=== PATIENT | female | born 1950 | race American Indian/Alaskan Native ===

== ENCOUNTER 2018-06-12 11:37 | Emergency (ER) | payer MEDICARE ==
[2018-06-12] MEDS ORDERED: D50W (25GM) Syringe IV ONE ×2 (12:03→12:37)
--- NOTE | 2018-06-12 12:08 | Emergency Department Report ---
ED General Adult HPI - General Stated complaint: HIGH BLOOD SUGAR Time Seen by Provider: 06/12/18 11:54 - History of Present Illness Initial comments: Patient is 67 years old female history of diabetes and hypertension and bipolar disorder. Patient brought to the ER for evaluation of high blood sugar, patient stated that she was at her PCP office, they found that her blood sugar is 500 .She call EMS, EMS when they got there they checked her blood sugar and it was 81. Patient denying any symptoms. When she arrived to the ER, patient blood sugar was 39. EMS stated that they only gave 250 mL of normal saline no insulin was given. Patient denied any chest pain, abdominal pain, nausea or vomiting. - Related Data Home Medications Medication Instructions Recorded Confirmed Last Taken AtorvaSTATin [Lipitor] 20 mg PO QHS 06/12/18 06/12/18 Unknown Metformin HCl [Glucophage] 1,000 mg PO DAILY 06/12/18 06/12/18 Unknown Sertraline [Zoloft] 200 mg PO DAILY 06/12/18 06/12/18 Unknown amLODIPine [Norvasc] 10 mg PO DAILY 06/12/18 06/12/18 Unknown Allergies Allergy/AdvReac Type Severity Reaction Status Date / Time LANDON Inhibitors AdvReac Rash Verified 06/12/18 12:13 Iodine and Iodide Containing AdvReac Anaphylaxis Verified 06/12/18 12:14 Produc ED Review of Systems ROS: Stated complaint: HIGH BLOOD SUGAR Other details as noted in HPI Comment: All other systems reviewed and negative Constitutional: denies: chills, fever Respiratory: denies: cough Cardiovascular: denies: chest pain, palpitations, dyspnea on exertion, orthopnea Gastrointestinal: denies: abdominal pain, nausea, vomiting, diarrhea, constipation, hematemesis, melena, hematochezia Genitourinary: denies: urgency, dysuria, frequency, hematuria, discharge Musculoskeletal: denies: back pain Neurological: denies: headache, weakness, numbness, paresthesias, confusion, abnormal gait ED Past Medical Hx - Medications Home Medications: Home Medications Medication Instructions Recorded Confirmed Last Taken Type AtorvaSTATin [Lipitor] 20 mg PO QHS 18 06/12/18 Unknown History Metformin HCl [Glucophage] 1,000 mg PO DAILY 06/12/18 06/12/18 Unknown History Sertraline [Zoloft] 200 mg PO DAILY 06/12/18 06/12/18 Unknown History amLODIPine [Norvasc] 10 mg PO DAILY 06/12/18 06/12/18 Unknown History ED Physical Exam - General General appearance: alert, in no apparent distress - Head Head exam: Present: atraumatic, normocephalic, normal inspection - Eye Eye exam: Present: normal appearance, PERRL - ENT ENT exam: Present: normal exam, normal orophraynx, mucous membranes moist - Neck Neck exam: Present: normal inspection, full ROM. Absent: tenderness, meningismus, lymphadenopathy, thyromegaly - Respiratory Respiratory exam: Present: normal lung sounds bilaterally. Absent: respiratory distress, wheezes, rales, rhonchi, stridor, chest wall tenderness, accessory muscle use, decreased breath sounds, prolonged expiratory - Cardiovascular Cardiovascular Exam: Present: regular rate, normal rhythm, normal heart sounds - GI/Abdominal GI/Abdominal exam: Present: soft, normal bowel sounds. Absent: distended, tenderness, guarding, rebound, rigid, organomegaly, mass, bruit, pulsatile mass , hernia - Extremities Exam Extremities exam: Present: normal inspection, full ROM, normal capillary refill - Back Exam Back exam: Present: normal inspection, full ROM. Absent: tenderness, CVA tenderness (R), CVA tenderness (L), muscle spasm, paraspinal tenderness, vertebral tenderness - Neurological Exam Neurological exam: Present: alert, oriented X3, CN II-XII intact, normal gait, reflexes normal - Skin Skin exam: Present: warm, intact, normal color ED Course Vital Signs 06/12/18 06/12/18 06/12/18 11:50 12:00 12:04 Temperature 98.3 F Pulse Rate 95 H 105 H Respiratory 22 18 Rate Blood Pressure 115/64 105/61 Blood Pressure 105/61 [Right] O2 Sat by Pulse 98 97 98 Oximetry 06/12/18 06/12/18 06/12/18 12:16 12:30 12:46 Temperature Pulse Rate 95 H 94 H 101 H Respiratory 20 16 22 Rate Blood Pressure 115/64 115/64 115/64 Blood Pressure [Right] O2 Sat by Pulse 97 97 96 Oximetry 06/12/18 06/12/18 06/12/18 13:00 13:16 13:30 Temperature Pulse Rate 104 H 100 H 100 H Respiratory 23 23 18 Rate Blood Pressure 115/64 115/64 124/91 Blood Pressure [Right] O2 Sat by Pulse 96 96 96 Oximetry 06/12/18 06/12/18 06/12/18 13:48 14:00 14:16 Temperature Pulse Rate Respiratory Rate Blood Pressure 124/91 124/91 124/91 Blood Pressure [Right] O2 Sat by Pulse 98 96 97 Oximetry 06/12/18 06/12/18 06/12/18 14:30 14:46 15:00 Temperature Pulse Rate Respiratory Rate Blood Pressure 124/91 124/91 124/91 Blood Pressure [Right] O2 Sat by Pulse 97 98 99 Oximetry 06/12/18 06/12/18 06/12/18 15:16 16:48 17:00 Temperature Pulse Rate Respiratory 21 Rate Blood Pressure 140/76 140/76 140/76 Blood Pressure [Right] O2 Sat by Pulse 100 92 96 Oximetry 06/12/18 06/12/18 06/12/18 17:16 17:30 17:46 Temperature Pulse Rate Respiratory 19 22 26 H Rate Blood Pressure 140/76 109/85 109/85 Blood Pressure [Right] O2 Sat by Pulse 100 99 98 Oximetry 06/12/18 06/12/18 06/12/18 18:00 18:20 18:46 Temperature Pulse Rate 88 Respiratory 24 16 Rate Blood Pressure 139/84 139/84 Blood Pressure [Right] O2 Sat by Pulse 98 97 99 Oximetry - Reevaluation(s) Reevaluation #1: 06/12/18 18:53 Patient stated that she is feeling much better. I discussed with the patient the option of being admitted to be observed patient refused the admission and she said she just wanted go home and see significant call her son to come and pick. Patient currently denying any headache, dizziness, chest pain, shortness of breath, abdominal pain, weakness numbness or tingling sensation. ED Medical Decision Making - Lab Data Result diagrams: 06/12/18 18:41 06/12/18 12:11 - Radiology Data Radiology results: report reviewed CT brain is negative for acute finding. Chest x-ray is negative for acute finding. Critical care attestation.: If time is entered above; I have spent that time in minutes in the direct care of this critically ill patient, excluding procedure time. ED Disposition Clinical Impression: Hypoglycemic reaction, Generalized weakness Disposition: DC-01 TO HOME OR SELFCARE Is pt being admited?: No Condition: Stable Instructions: Diabetic Hypoglycemia (ED), Weakness (ED) Referrals: PRIMARY CARE, [Primary Care Provider] - 3-5 Days
[2018-06-12 12:36] LABS: Hematocrit 33.7 % (30.3-42.9); Mean Corpuscular HGB Conc 33 % (30-34); Mean Corpuscular Hemoglobin 28 pg (28-32); Mean Corpuscular Volume 87 fl (79-97); Platelet Count 248 K/mm3 (140-440); Red Blood Count 3.89 M/mm3 (3.65-5.03); Red Cell Distribution Width 14.6 % (13.2-15.2)
[2018-06-12 12:53] LABS: Alanine Aminotransferase 15 units/L (7-56); Albumin 3.9 g/dL (3.9-5); BUN/Creatinine Ratio 29; Blood Urea Nitrogen 29 mg/dL (7-17); Calcium 9.5 mg/dL (8.4-10.2); Hemolysis Index 24
[2018-06-12] MEDS: KCL 10MEQ/100ML 10 MEQ/100 ML BAG IV SCH ×2 (14:19→16:55)
[2018-06-12] MEDS ORDERED: NACL 0.9% 1000 ML 1,000 ML ONE (14:46)
[2018-06-12 14:59] LABS: Bacteria,Urine 1+ /HPF (Negative); Bilirubin,Urine NEG (Negative); Blood,Urine NEG (Negative); Color,Urine Yellow (Yellow); Protein,Urine <15 mg/dL mg/dL (Negative); Urobilinogen,Urine < 2.0 mg/dL (<2.0); WBC,Urine < 1.0 /HPF (0.0-6.0)
[2018-06-12 15:01] LABS: RBC,Urine < 1.0 /HPF (0.0-6.0)
--- NOTE | 2018-06-12 15:10 | XRay Report ---
AP CHEST: HISTORY: weakness AP view of the chest demonstrates a normal mediastinal and cardiac contour with clear lungs and normal bony and soft tissue structures. IMPRESSION: Unremarkable AP chest.
[2018-06-12 15:22] LABS: Total Cells Counted 100
[2018-06-12 15:23] LABS: Platelet Estimate Consistent w Auto
[2018-06-12] MEDS ORDERED: K-DUR PO ONE (15:37)
[2018-06-12] MEDS ORDERED: HABITROL TD ONE (16:52)
--- NOTE | 2018-06-12 18:35 | Cat Scan Report ---
FINAL REPORT PROCEDURE: CT head without contrast. TECHNIQUE: Computerized tomography of the head was performed without contrast material. HISTORY: Dizziness. COMPARISON: No prior studies are available for comparison. FINDINGS: There is mild cerebral atrophy. There are old lacunar infarcts in the basal ganglia bilaterally. There are no mass lesions. There is no intracranial hemorrhage. The calvarium appears intact. The mastoid air cells and paranasal sinuses are clear as far as visualized. IMPRESSION: Old lacunar infarcts in the basal ganglia. Otherwise normal study of the brain for age.
[2018-06-12 19:02] LABS: Basophils # (Auto) 0.1 K/mm3 (0.0-0.1); Basophils % (Auto) 0.4 % (0.0-1.8); Eosinophils # (Auto) 0.2 K/mm3 (0.0-0.4); Eosinophils % (Auto) 1.3 % (0.0-4.3); Hematocrit 36.3 % (30.3-42.9); Hemoglobin 11.9 gm/dl (10.1-14.3); Lymphocytes # (Auto) 2.2 K/mm3 (1.2-5.4); Lymphocytes % (Auto) 13.8 % (13.4-35.0); Mean Corpuscular HGB Conc 33 % (30-34); Mean Corpuscular Hemoglobin 28 pg (28-32); Mean Corpuscular Volume 86 fl (79-97); Monocytes # (Auto) 1.2 K/mm3 (0.0-0.8); Monocytes % (Auto) 7.6 % (0.0-7.3); Platelet Count 221 K/mm3 (140-440); Red Blood Count 4.24 M/mm3 (3.65-5.03); Red Cell Distribution Width 14.3 % (13.2-15.2)
[2018-06-12 19:05] VITALS: BP 139/84
== END 2018-06-12 19:28 | disposition home or self-care (01) ==
LOC: ED 11:37
DX: E11.649 Type 2 diabetes mellitus with hypoglycemia without coma (principal); I10 Essential (primary) hypertension; Z88.8 Allergy status to other drugs, medicaments and biological substances
CPT/HCPCS: 36415; 70450; 71045; 80053; 81001; 82962; 84484; 85007; 85025; 96374; 99285; J3480; J7030

== ENCOUNTER 2020-05-04 22:02 | Observation (INO) | payer MEDICARE ==
--- NOTE | 2020-05-04 22:49 | Emergency Department Report ---
ED Neuro Deficit HPI - General Chief Complaint: Hyperglycemia Stated Complaint: DIABETIC, SUGAR HIGH Source: patient Mode of arrival: Wheelchair Limitations: No Limitations - History of Present Illness Initial Comments: [facility] Date of Service: 05/04/2020 22:29:59 Impression: Left sided weakness Comments/Sign-Out: Acute onset left arm weakness, resolving now and otherwise non focal. Unclear etiology but possible TIA as symptoms have pretty much resolved. Metrics: Last Known Well: 05/04/2020 21:30:00 [facility] Notification Time: 05/04/2020 22:29:27 Arrival Time: 05/04/2020 22:02:00 Stamp Time: 05/04/2020 22:29:59 Time First Login Attempt: 05/04/2020 22:34:04 Video Start Time: 05/04/2020 22:34:04 Symptoms: Left arm weakness NIHSS Start Assessment Time: 05/04/2020 22:39:58 Patient is not a candidate for tPA. Patient was not deemed candidate for tPA thrombolytics because of Resolved symptoms (no residual disabling symptoms). Video End Time: 05/04/2020 22:45:45 CT head showed no acute hemorrhage or acute core infarct. Clinical Presentation is not Suggestive of Large Vessel Occlusive Disease ED Physician notified of diagnostic impression and management plan on 05/04/2020 22:45:44 Our recommendations are outlined below. Recommendations: Activate Stroke Protocol Admission/Order Set Stroke/Telemetry Floor Neuro Checks Bedside Swallow Eval DVT Prophylaxis IV Fluids, Normal Saline Head of Bed 30 Degrees Euglycemia and Avoid Hyperthermia (PRN Acetaminophen) Initiate Aspirin 81 MG Daily Initiate Plavix 75 MG Daily MRI brain, MRA head and neck, FLP, A1c, permissive htn, echo Routine Consultation with Inhouse Neurology for Follow up Care Sign Out: Discussed with Emergency Department Provider History of Present Illness: Patient is a 69 year old Female. Patient was brought by EMS for symptoms of Left arm weakness Hx of stroke, [place], DM2 Sudden onset left arm weakness. No face or leg involvement. She has no numbness or tingling that is new. No AC Takes asa daily. Examination: BP(114/91), Blood Glucose(226) 1A: Level of Consciousness - Alert; keenly responsive + 0 1B: Ask Month and Age - Both Questions Right + 0 1C: Blink Eyes & Squeeze Hands - Performs Both Tasks + 0 2: Test Horizontal Extraocular Movements - Normal + 0 3: Test Visual Johnson - No Visual Loss + 0 4: Test Facial Palsy (Use Grimace if Obtunded) - Normal symmetry + 0 5A: Test Left Arm Motor Drift - No Drift for 10 Seconds + 0 5B: Test Right Arm Motor Drift - No Drift for 10 Seconds + 0 6A: Test Left Leg Motor Drift - No Drift for 5 Seconds + 0 6B: Test Right Leg Motor Drift - No Drift for 5 Seconds + 0 7: Test Limb Ataxia (FNF/Heel-Buchanan) - No Ataxia + 0 8: Test Sensation - Normal; No sensory loss + 0 9: Test Language/Aphasia - Normal; No aphasia + 0 10: Test Dysarthria - Normal + 0 11: Test Extinction/Inattention - No abnormality + 0 NIHSS Score: 0 Due to the immediate potential for life-threatening deterioration due to underl elvis acute neurologic illness, I spent 35 minutes providing critical care. This time includes time for face to face visit via telemedicine, review of medical records, imaging studies and discussion of findings with providers, the patient and/or family. Dr César Jonas [facility] Case [id number] - Related Data Home Medications: Home Medications Medication Instructions Recorded Confirmed Last Taken AtorvaSTATin [Lipitor] 20 mg PO QHS 06/12/18 06/12/18 Unknown Metformin HCl [Glucophage] 1,000 mg PO DAILY 06/12/18 06/12/18 Unknown Sertraline [Zoloft] 200 mg PO DAILY 06/12/18 06/12/18 Unknown amLODIPine [Norvasc] 10 mg PO DAILY 06/12/18 06/12/18 Unknown Allergies/Adverse Reactions: Allergies Allergy/AdvReac Type Severity Reaction Status Date / Time LANDON Inhibitors AdvReac Rash Verified 06/12/18 12:13 Iodine and Iodide Containing AdvReac Anaphylaxis Verified 06/12/18 12:14 Produc ED Review of Systems ROS: Stated complaint: DIABETIC, SUGAR HIGH Other details as noted in HPI ED Past Medical Hx - Past Medical History Previous Medical History?: Yes Hx Hypertension: Yes Hx CVA: Yes (x2 old left side weakness.) Hx Heart Attack/AMI: No Hx Congestive Heart Failure: No Hx Diabetes: Yes Hx Pulmonary Embolism: No Hx GERD: No Hx Liver Disease: No Hx Renal Disease: No Hx Sickle Cell Disease: No Hx Arthritis: No Hx Headaches / Migraines: No Hx Seizures: No Hx Kidney Stones: No Hx Psychiatric Treatment: No Hx Asthma: No Hx COPD: No Hx Tuberculosis: No Hx Dementia: No Hx HIV: No - Surgical History Past Surgical History?: Yes Hx Coronary Stent: No Hx Open Heart Surgery: No Hx Pacemaker: No Hx Internal Defibrillator: No Hx Cholecystectomy: No Hx Appendectomy: No Hx Breast Surgery: No Additional Surgical History: sinus - Social History Smoking Status: Current Every Day Smoker Substance Use Type: Alcohol - Medications Home Medications: Home Medications Medication Instructions Recorded Confirmed Last Taken Type AtorvaSTATin [Lipitor] 20 mg PO QHS 06/12/18 06/12/18 Unknown History Metformin HCl [Glucophage] 1,000 mg PO DAILY 06/12/18 06/12/18 Unknown History Sertraline [Zoloft] 200 mg PO DAILY 06/12/18 06/12/18 Unknown History amLODIPine [Norvasc] 10 mg PO DAILY 06/12/18 06/12/18 Unknown History ED Neuro Physical Exam - General Limitations: No Limitations Suspected Stroke: Yes (probable TIA) - NIHSS Assessment Interval: Baseline 1a. Level of Consciousness: alert/keenly responsive 1b. LOC Questions: answers both correctly 1c. LOC Commands: performs tasks correctly 2. Best Gaze: normal 3. Visual: no visual loss 4. Facial Palsy: normal symmetrical movement 5b. Motor Arm Right: no drift 5a. Motor Arm Left: no drift 6a. Motor Leg Left: no drift 6b. Motor Leg Right: no drift 7. Limb Ataxia: absent 8. Sensory: normal 9. Best Language: no aphasia 10. Dysarthria: normal 11. Extinction/Inattention: no abnormality Total Score: 0 Stroke Severity: No Stroke Symptoms ED Course Vital Signs 05/04/20 22:07 Temperature 98.0 F Pulse Rate 118 H Respiratory 18 Rate Blood Pressure 114/91 O2 Sat by Pulse 99 Oximetry - Lab Data Lab Results 05/04/20 Range/Units 22:36 POC Glucose 72 (70-105) Critical care attestation.: If time is entered above; I have spent that time in minutes in the direct care of this critically ill patient, excluding procedure time. ED Disposition Clinical Impression: TIA (transient ischemic attack) Disposition: OP ADMIT IP TO THIS HOSP Is pt being admited?: Yes Condition: Stable
--- NOTE | 2020-05-04 22:55 | Cat Scan Report ---
CT HEAD WITHOUT CONTRAST INDICATION / CLINICAL INFORMATION: CODE STROKE PROTOCOL!!! Pt complains of LEFT sided weakness x 1 hour, otherwise asymptomatic.. TECHNIQUE: All CT scans at this location are performed using CT dose reduction for ALARA by means of automated e xposure control. COMPARISON: None available. FINDINGS: HEMORRHAGE: None. EXTRA-AXIAL SPACES: Normal in size and morphology for the patient's age. VENTRICULAR SYSTEM: Mildly prominent from central cerebral atrophy, unchanged CEREBRAL PARENCHYMA: Focal encephalomalacia from old right posterior parietal CVA, unchanged axial im ages 18 through 20. Old bilateral lacunar infarcts both caudate nuclei No significant abnormality. No acute territorial infarct. MIDLINE SHIFT OR HERNIATION: None. CEREBELLUM / BRAINSTEM: Old small right superior cerebellar CVA, unchanged. ORBITS: Normal as visualized. SOFT TISSUES of HEAD: No significant abnormality. CALVARIUM: No significant abnormality. PARANASAL SINUSES / MASTOID AIR CELLS: Normal as visualized. ADDITIONAL FINDINGS: Vascular calcifications both cavernous carotid and vertebral arteries. IMPRESSION: 1. No large acute territorial infarction or intracranial bleed. 2. Old right posterior parietal and right superior cerebellar CVAs. 3. Old bilateral lacunar infarcts COMMUNICATION: Code stroke results Time of Communication: 9:50 PM Central standard time 05/04/2020 Licensed Practitioner Receiving Report: Dr. Caballero Signer Name: Juan Nolasco MD Signed: 05/04/2020 10:51 PM Workstation Name: [id number]
[2020-05-04 23:01] LABS: Basophils # (Auto) 0.1 K/mm3 (0.0-0.1); Basophils % (Auto) 0.7 % (0.0-1.8); Eosinophils # (Auto) 0.1 K/mm3 (0.0-0.4); Hematocrit 44.6 % (30.3-42.9); Hemoglobin 14.8 gm/dl (10.1-14.3); Lymphocytes # (Auto) 1.7 K/mm3 (1.2-5.4); Lymphocytes % (Auto) 13.7 % (13.4-35.0); Mean Corpuscular HGB Conc 33 % (30-34); Mean Corpuscular Volume 91 fl (79-97); Monocytes # (Auto) 1.2 K/mm3 (0.0-0.8); Monocytes % (Auto) 9.6 % (0.0-7.3); Platelet Count 304 K/mm3 (140-440); Red Blood Count 4.92 M/mm3 (3.65-5.03); Red Cell Distribution Width 14.9 % (13.2-15.2)
[2020-05-04 23:11] LABS: Partial Thromboplastin Time 24.3 Sec. (24.2-36.6)
[2020-05-04 23:15] LABS: INR 0.91 (0.87-1.13)
--- NOTE | 2020-05-04 23:16 | Emergency Department Report ---
ED Neuro Deficit HPI - General Chief Complaint: Hyperglycemia Stated Complaint: DIABETIC, SUGAR HIGH Time Seen by Provider: 05/04/20 23:05 Source: patient Mode of arrival: Wheelchair Limitations: No Limitations - History of Present Illness Initial Comments: 69-year-old female with a past medical history of diabetes currently on insulin, previous CVA x2 with left-sided weakness, and hypertension presents to the hospital complains of uncontrolled glucose. Patient states her glucose today was in the 200s therefore she took her 10 units of insulin. She was concerned because her glucose came down to the 70s and up after eating a half a honey bun remained in the 70s. Patient was concerned that her glucose was going to drop too low and therefore came to the ED. In route to the hospital around 10 PM patient started to experience left shoulder and arm burning sensation. There is no complaint of weakness to the arm. Patient has a history of diabetic neuropathy with symptoms in her feet and left fingers. Patient states she has not felt this burning pain in her left arm like this before. Symptoms have been constant since onset. No other neuro complaints at this time. Patient is prescribed Novolin N 26 units twice daily but patient states that her sugar drops too low on this regiment. Therefore, patient gives herself 10 to 15 units of insulin twice daily only if her sugars greater 150s. Patient denies infectious symptoms, cough, fever, or dysuria - Related Data Home Medications: Home Medications Medication Instructions Recorded Confirmed Last Taken AtorvaSTATin [Lipitor] 20 mg PO QHS 06/12/18 06/12/18 Unknown Metformin HCl [Glucophage] 1,000 mg PO DAILY 06/12/18 06/12/18 Unknown Sertraline [Zoloft] 200 mg PO DAILY 06/12/18 06/12/18 Unknown amLODIPine [Norvasc] 10 mg PO DAILY 06/12/18 06/12/18 Unknown Allergies/Adverse Reactions: Allergies Allergy/AdvReac Type Severity Reaction Status Date / Time LANDON Inhibitors AdvReac Rash Verified 06/12/18 12:13 Iodine and Iodide Containing AdvReac Anaphylaxis Verified 06/12/18 12:14 Produc ED Review of Systems ROS: Stated complaint: DIABETIC, SUGAR HIGH Other details as noted in HPI Comment: All other systems reviewed and negative ED Past Medical Hx - Past Medical History Previous Medical History?: Yes Hx Hypertension: Yes Hx CVA: Yes (x2 old left side weakness.) Hx Heart Attack/AMI: No Hx Congestive Heart Failure: No Hx Diabetes: Yes Hx Pulmonary Embolism: No Hx GERD: No Hx Liver Disease: No Hx Renal Disease: No Hx Sickle Cell Disease: No Hx Arthritis: No Hx Headaches / Migraines: No Hx Seizures: No Hx Kidney Stones: No Hx Psychiatric Treatment: No Hx Asthma: No Hx COPD: No Hx Tuberculosis: No Hx Dementia: No Hx HIV: No - Surgical History Past Surgical History?: Yes Hx Coronary Stent: No Hx Open Heart Surgery: No Hx Pacemaker: No Hx Internal Defibrillator: No Hx Cholecystectomy: No Hx Appendectomy: No Hx Breast Surgery: No Additional Surgical History: sinus - Social History Smoking Status: Current Every Day Smoker Substance Use Type: Alcohol - Medications Home Medications: Home Medications Medication Instructions Recorded Confirmed Last Taken Type AtorvaSTATin [Lipitor] 20 mg PO QHS 06/12/18 06/12/18 Unknown History Metformin HCl [Glucophage] 1,000 mg PO DAILY 06/12/18 06/12/18 Unknown History Sertraline [Zoloft] 200 mg PO DAILY 06/12/18 06/12/18 Unknown History amLODIPine [Norvasc] 10 mg PO DAILY 06/12/18 06/12/18 Unknown History ED Neuro Physical Exam - General Limitations: No Limitations Suspected Stroke: No - NIHSS Assessment Interval: Baseline 1a. Level of Consciousness: alert/keenly responsive 1b. LOC Questions: answers both correctly 1c. LOC Commands: performs tasks correctly 2. Best Gaze: normal 3. Visual: no visual loss 4. Facial Palsy: normal symmetrical movement 5b. Motor Arm Right: no drift 5a. Motor Arm Left: no drift 6a. Motor Leg Left: no drift 6b. Motor Leg Right: no drift 7. Limb Ataxia: absent 8. Sensory: normal 9. Best Language: no aphasia 10. Dysarthria: normal 11. Extinction/Inattention: no abnormality Total Score: 0 Stroke Severity: No Stroke Symptoms ED Course Vital Signs 05/04/20 05/04/20 22:07 23:09 Temperature 98.0 F 98.6 F Pulse Rate 118 H 98 H Respiratory 18 18 Rate Blood Pressure 114/91 Blood Pressure 214/91 [Left] O2 Sat by Pulse 99 96 Oximetry - Lab Data Result diagrams: 05/04/20 22:49 05/04/20 22:49 Lab Results 05/04/20 05/04/20 05/04/20 Range/Units 22:36 22:49 22:49 WBC 12.5 H (4.5-11.0) K/mm3 RBC 4.92 (3.65-5.03) M/mm3 Hgb 14.8 H (10.1-14.3) gm/dl Hct 44.6 H (30.3-42.9) % MCV 91 (79-97) fl MCH 30 (28-32) pg MCHC 33 (30-34) % RDW 14.9 (13.2-15.2) % Plt Count 304 (140-440) K/mm3 Lymph % (Auto) 13.7 (13.4-35.0) % [place] % (Auto) 9.6 H (0.0-7.3) % Eos % (Auto) 1.0 (0.0-4.3) % Baso % (Auto) 0.7 (0.0-1.8) % Lymph # 1.7 (1.2-5.4) K/mm3 [place] # 1.2 H (0.0-0.8) K/mm3 Eos # 0.1 (0.0-0.4) K/mm3 Baso # 0.1 (0.0-0.1) K/mm3 Seg Neutrophils % 75.0 H (40.0-70.0) % Seg Neutrophils # 9.3 H (1.8-7.7) K/mm3 PT 12.1 L (12.2-14.9) Sec. INR 0.91 (0.87-1.13) APTT 24.3 (24.2-36.6) Sec. VBG pH (7.320-7.420) Sodium (137-145) mmol/L Potassium (3.6-5.0) mmol/L Chloride (98-107) mmol/L Carbon Dioxide (22-30) mmol/L Anion Gap mmol/L BUN (7-17) mg/dL Creatinine (0.7-1.2) mg/dL Estimated GFR ml/min BUN/Creatinine Ratio % Glucose (65-100) mg/dL POC Glucose 72 (70-105) Calcium (8.4-10.2) mg/dL Troponin T (0.00-0.029) ng/mL Urine Color (Yellow) Urine Turbidity (Clear) Urine pH (5.0-7.0) Ur Specific [place] (1.003-1.030) Urine Protein (Negative) mg/dL Urine Glucose (UA) (Negative) mg/dL Urine Ketones (Negative) mg/dL Urine Blood (Negative) Urine Nitrite (Negative) Urine Bilirubin (Negative) Urine Urobilinogen (<2.0) mg/dL Ur Leukocyte Esterase (Negative) Urine WBC (Auto) (0.0-6.0) /HPF Urine RBC (Auto) (0.0-6.0) /HPF Urine Bacteria (Auto) (Negative) /HPF 05/04/20 05/04/20 05/04/20 Range/Units 22:49 22:49 23:18 WBC (4.5-11.0) K/mm3 RBC (3.65-5.03) M/mm3 Hgb (10.1-14.3) gm/dl Hct (30.3-42.9) % MCV (79-97) fl MCH (28-32) pg MCHC (30-34) % RDW (13.2-15.2) % Plt Count (140-440) K/mm3 Lymph % (Auto) (13.4-35.0) % [place] % (Auto) (0.0-7.3) % Eos % (Auto) (0.0-4.3) % Baso % (Auto) (0.0-1.8) % Lymph # (1.2-5.4) K/mm3 [place] # (0.0-0.8) K/mm3 Eos # (0.0-0.4) K/mm3 Baso # (0.0-0.1) K/mm3 Seg Neutrophils % (40.0-70.0) % Seg Neutrophils # (1.8-7.7) K/mm3 PT (12.2-14.9) Sec. INR (0.87-1.13) APTT (24.2-36.6) Sec. VBG pH 7.369 (7.320-7.420) Sodium 142 (137-145) mmol/L Potassium 4.6 (3.6-5.0) mmol/L Chloride 104.0 (98-107) mmol/L Carbon Dioxide 25 (22-30) mmol/L Anion Gap 18 mmol/L BUN 15 (7-17) mg/dL Creatinine 1.0 (0.7-1.2) mg/dL Estimated GFR > 60 ml/min BUN/Creatinine Ratio 15 % Glucose 89 (65-100) mg/dL POC Glucose (70-105) Calcium 10.3 H (8.4-10.2) mg/dL Troponin T < 0.010 (0.00-0.029) ng/mL Urine Color Straw (Yellow) Urine Turbidity Clear (Clear) Urine pH 7.0 (5.0-7.0) Ur Specific [place] 1.004 (1.003-1.030) Urine Protein 30 mg/dl (Negative) mg/dL Urine Glucose (UA) Neg (Negative) mg/dL Urine Ketones Neg (Negative) mg/dL Urine Blood Neg (Negative) Urine Nitrite Neg (Negative) Urine Bilirubin Neg (Negative) Urine Urobilinogen < 2.0 (<2.0) mg/dL Ur Leukocyte Esterase Neg (Negative) Urine WBC (Auto) < 1.0 (0.0-6.0) /HPF Urine RBC (Auto) 1.0 (0.0-6.0) /HPF Urine Bacteria (Auto) 1+ (Negative) /HPF - EKG Data -: EKG Interpreted by Me (pvc's) EKG shows normal: sinus rhythm, ST-T waves (no stemi) Rate: tachycardia (101) - Radiology Data Radiology results: report reviewed CT HEAD WITHOUT CONTRAST INDICATION / CLINICAL INFORMATION: CODE STROKE PROTOCOL!!! Pt complains of LEFT sided weakness x 1 hour, otherwise asymptomatic.. TECHNIQUE: All CT scans at this location are performed using CT dose reduction for ALARA by means of automated exposure control. COMPARISON: None available. FINDINGS: HEMORRHAGE: None. EXTRA-AXIAL SPACES: Normal in size and morphology for the patient's age. VENTRICULAR SYSTEM: Mildly prominent from central cerebral atrophy, unchanged CEREBRAL PARENCHYMA: Focal encephalomalacia from old right posterior parietal CVA, unchanged axial images 18 through 20. Old bilateral lacunar infarcts both caudate nuclei No significant abnormality. No acute territorial infarct. MIDLINE SHIFT OR HERNIATION: None. CEREBELLUM / BRAINSTEM: Old small right superior cerebellar CVA, unchanged. ORBITS: Normal as visualized. SOFT TISSUES of HEAD: No significant abnormality. CALVARIUM: No significant abnormality. PARANASAL SINUSES / MASTOID AIR CELLS: Normal as visualized. ADDITIONAL FINDINGS: Vascular calcifications both cavernous carotid and vertebral arteries. IMPRESSION: 1. No large acute territorial infarction or intracranial bleed. 2. Old right posterior parietal and right superior cere bellar CVAs. 3. Old bilateral lacunar infarcts - Medical Decision Making pt came to ed due to concerns her glucose would drop and developed left arm burning pain in route to the hospital. Patient does have history of diabetic neuropathy. No weakness noted on exam. Patient evaluated by tele-neurologist who recommends TIA work-up. Also recommends aspirin 81 mg and Plavix 75 mg which have been ordered Critical Care Time: No Critical care attestation.: If time is entered above; I have spent that time in minutes in the direct care of this critically ill patient, excluding procedure time. ED Disposition Clinical Impression: TIA (transient ischemic attack), Diabetes, Diabetic neuropathy Disposition: OP ADMIT IP TO THIS HOSP Is pt being admited?: Yes Condition: Stable Time of Disposition: 00:55 (gbenle/hosp)
[2020-05-04 23:21] LABS: BUN/Creatinine Ratio 15; Blood Urea Nitrogen 15 mg/dL (7-17); Calcium 10.3 mg/dL (8.4-10.2); Hemolysis Index 6
[2020-05-04 23:43] LABS: Bacteria,Urine 1+ /HPF (Negative); Bilirubin,Urine NEG (Negative); Blood,Urine NEG (Negative); Color,Urine Straw (Yellow); Urobilinogen,Urine < 2.0 mg/dL (<2.0); WBC,Urine < 1.0 /HPF (0.0-6.0)
[2020-05-05] MEDS ORDERED: ASPIRIN 81 MG TAB CHEW PO ONE (00:34)
[2020-05-05] MEDS ORDERED: CLOPIDOGREL 75 MG TAB PO ONE (00:34)
[2020-05-05] MEDS ORDERED: ACETAMINOPHEN 325 MG TAB PO PRN ×2 (01:09)
[2020-05-05] MEDS ORDERED: MAGNESIUM HYDROXIDE (MOM) ORAL LIQD UDC PO PRN ×2 (01:09)
[2020-05-05] MEDS ORDERED: DEXTROSE 50% IN WATER (25GM) 50 ML SYRINGE IV PRN (01:09)
[2020-05-05] MEDS ORDERED: PROMETHAZINE 25 MG RECT SUPP PR PRN (01:09)
[2020-05-05] MEDS ORDERED: METOCLOPRAMIDE 10 MG TAB PO PRN (01:09)
[2020-05-05] MEDS ORDERED: ONDANSETRON 4 MG/2 ML INJ IV PRN ×2 (01:09)
--- NOTE | 2020-05-05 01:27 | History and Physical Report ---
History of Present Illness Date of examination: 05/05/20 Date of admission: 05/05/20 00:55 Chief complaint: Uncontrolled blood sugar Tingling sensation in the left upper extremity History of present illness: 69-year-old female with known history of CVA with left-sided weakness, diabetes mellitus and hypertension presenting to the emergency room today complaining of uncontrolled blood sugar.. She has been having elevated blood glucose at home as she had taking about 10 units of insulin. She admits she was concerned that her blood sugar might be low and therefore she decided to report to the emergency room. She later on complained of left shoulder and left upper extremity burning sensation. She denies any chest pain or shortness of breath, no nausea vomiting, no fever or chills, no headache or dizziness. Patient denies having this type of burning sensation in her left upper extremity and over the shoulder in the past. She was evaluated by teleneurologist and recommendation is to have patient worked up for possible TIA Work-up so far including CT scan of the head has been unremarkable. Past History Past Medical History: diabetes, hypertension, hyperlipidemia, stroke Past Surgical History: No surgical history Social history: smoking (Current daily smoker), alcohol abuse (Drinks alcohol occasionally) Family history: no significant family history Medications and Allergies Allergies Allergy/AdvReac Type Severity Reaction Status Date / Time LANDON Inhibitors AdvReac Rash Verified 06/12/18 12:13 Iodine and Iodide Containing AdvReac Anaphylaxis Verified 06/12/18 12:14 Produc Home Medications Medication Instructions Recorded Confirmed Last Taken Type AtorvaSTATin [Lipitor] 20 mg PO QHS 06/12/18 06/12/18 Unknown History Metformin HCl [Glucophage] 1,000 mg PO DAILY 06/12/18 06/12/18 Unknown History Sertraline [Zoloft] 200 mg PO DAILY 06/12/18 06/12/18 Unknown History amLODIPine [Norvasc] 10 mg PO DAILY 06/12/18 06/12/18 Unknown History Active Meds: Active Medications Acetaminophen (Tylenol) 650 mg PO Q4H PRN PRN Reason: Pain MILD(1-3)/Fever >100.5/CRUZ Acetaminophen (Tylenol) 650 mg PO Q4H PRN PRN Reason: Pain, Mild (1-3) Aspirin (Aspirin) 325 mg PO QDAY KIT Bisacodyl (Dulcolax) 10 mg [place] QDAY PRN PRN Reason: Constipation Dextrose (D50w (25gm) Syringe) 50 ml IV Q30MIN PRN; Protocol PRN Reason: Hypoglycemia Insulin Human Lispro (Humalog) 0 unit SUB-Q ACHS KIT; Protocol Magnesium Hydroxide (Milk Of Magnesia) 30 ml PO Q4H PRN PRN Reason: Constipation Magnesium Hydroxide (Milk Of Magnesia) 30 ml PO Q4H PRN PRN Reason: Constipation Metoclopramide HCl (Reglan) 10 mg PO Q6H PRN PRN Reason: Nausea And Vomiting Ondansetron HCl (Zofran) 4 mg IV Q8H PRN PRN Reason: Nausea And Vomiting Ondansetron HCl (Zofran) 4 mg IV Q8H PRN PRN Reason: Nausea And Vomiting Promethazine HCl (Phenergan) 25 mg [place] Q6H PRN PRN Reason: Nausea And Vomiting Sodium Chloride (Sodium Chloride Flush Syringe 10 Ml) 10 ml IV BID KIT Sodium Chloride (Sodium Chloride Flush Syringe 10 Ml) 10 ml IV PRN PRN PRN Reason: LINE FLUSH Sodium Chloride (Sodium Chloride Flush Syringe 10 Ml) 10 ml INJ PRN PRN PRN Reason: LINE FLUSH Review of Systems Constitutional: no fever, no chills Ears, nose, mouth and throat: no nasal congestion, no sore throat Cardiovascular: no chest pain, no palpitations, no syncope Respiratory: no cough, no shortness of breath Gastrointestinal: no abdominal pain, no nausea, no vomiting, no diarrhea Genitourinary Female: no flank pain, no dysuria, no hematuria Musculoskeletal: no neck pain, no low back pain Integumentary: no rash, no pruritis Neurological: no headaches, no confusion Psychiatric: no anxiety, no depression Exam - Constitutional Vitals: Temp Pulse Resp BP Pulse Ox 98.6 F 98 H 18 214/91 96 05/04/20 23:09 05/04/20 23:09 05/04/20 23:09 05/04/20 23:09 05/04/20 23:09 General appearance: Present: no acute distress, well-nourished - EENT Eyes: Present: PERRL, EOM intact ENT: hearing intact, clear oral mucosa, dentition normal - Neck Neck: Present: supple, normal ROM - Respiratory Respiratory effort: normal Respiratory: bilateral: CTA - Cardiovascular Rhythm: regular Heart Sounds: Present: S1 & S2. Absent: gallop, systolic murmur, diastolic murmur, rub - Extremities Extremities: no ischemia, pulses intact, pulses symmetrical, No edema, Full ROM Peripheral Pulses: within normal limits - Abdominal General gastrointestinal: Present: soft, non-tender, non-distended, normal bowel sounds - Integumentary Integumentary: Present: clear, warm, dry. Absent: jaundice, rash - Musculoskeletal Musculoskeletal: strength equal bilaterally - Psychiatric Psychiatric: appropriate mood/affect, intact judgment & insight, memory intact, cooperative - Neurologic Neurologic: CNII-XII intact, no focal deficits, moves all extremities HEART Score - HEART Score Troponin: Troponin T < 0.010 ng/mL (0.00-0.029) 05/04/20 22:49 Results - Labs CBC & Chem 7: 05/04/20 22:49 05/04/20 22:49 Labs: Abnormal lab results 05/04/20 05/04/20 05/04/20 Range/Units 22:49 22:49 22:49 WBC 12.5 H (4.5-11.0) K/mm3 Hgb 14.8 H (10.1-14.3) gm/dl Hct 44.6 H (30.3-42.9) % [place] % (Auto) 9.6 H (0.0-7.3) % [place] # 1.2 H (0.0-0.8) K/mm3 Seg Neutrophils % 75.0 H (40.0-70.0) % Seg Neutrophils # 9.3 H (1.8-7.7) K/mm3 PT 12.1 L (12.2-14.9) Sec. Calcium 10.3 H (8.4-10.2) mg/dL Assessment and Plan - Patient Problems (1) TIA (transient ischemic attack) Current Visit: Yes Status: Acute Plan to address problem: Patient will be scheduled for carotid Doppler and MRI of the brain. Continue on daily aspirin. We will request evaluation by neurology. (2) Diabetes Current Visit: Yes Status: Acute Plan to address problem: We will monitor Accu-Cheks closely and resume routine home medications. (3) Hypertension Current Visit: Yes Status: Acute Plan to address problem: We will resume routine home medications and monitor vital signs closely (4) DVT prophylaxis Current Visit: Yes Status: Acute Plan to address problem: Patient placed on subcutaneous heparin. (5) Full code status Current Visit: Yes Status: Acute
[2020-05-05] MEDS: HEPARIN 5,000 UNIT/1 ML VIAL SUB-Q SCH ×2 (06:36→13:25)
[2020-05-05] MEDS: INSULIN LISPRO 100 UNIT/ML SUB-Q SCH ×3 (08:27→16:37)
[2020-05-05] MEDS ORDERED: ASPIRIN 325 MG TAB PO SCH (10:00)
--- NOTE | 2020-05-05 10:32 | Magnetic Resonance Report ---
MRI BRAIN WITHOUT CONTRAST INDICATION / CLINICAL INFORMATION: Left-sided weakness. TECHNIQUE: Multiplanar, multisequence MR images of the brain were obtained. COMPARISON: Head CT on 05/04/2020. FINDINGS: BRAIN / INTRACRANIAL CONTENTS: No acute ischemia, acute hemorrhage, mass effect, midline shift, or hy drocephalus. Stable chronic small infarcts in the right posterior occipital convexity and right supe rior cerebellum. Stable remote bilateral lacunar infarcts in the basal ganglia. Stable mild age comme nsurate global brain parenchymal volume loss. CRANIOCERVICAL JUNCTION: No significant abnormality. VASCULAR FLOW-VOIDS: No significant abnormality. ORBITS: No significant abnormality of visualized orbits. SINUSES / MASTOIDS: No significant abnormality of visualized sinuses and mastoid air cells. ADDITIONAL FINDINGS: None. IMPRESSION: 1. No acute infarct or other acute abnormality. 2. Stable multifocal chronic infarcts as detailed above. Signer Name: Jet Ozuna MD Signed: 05/05/2020 10:28 AM Workstation Name: [id number]
--- NOTE | 2020-05-05 11:45 | Consultation ---
History of Present Illness Consult date: 05/05/20 Reason for Consult: Left arm numbness Chief complaint: Left arm numbness History of present illness: Patient is a 69 y/o woman w/ a h/o CVA w/ no residual symptoms, HTN, DM, HLD, CAD, bipolar disease. She presented yesterday after she became concerned regarding her blood glucose, as it had decreased to 70 at home, and was not increasing after glucose intake. She was brought to [facility] for further evaluation, and en route, developed Lt. shoulder pain in left deltoid region. She denies any significant weakness or numbness of LUE. Symptoms had begun to improve when she was evaluated by teleneurologist in ER, and NIHSS was zero at that time. She states that she takes ASA 81mg daily, and has been compliant with it. Today, left shoulder pain has improved significantly, as it was 7/10 intensity yesterday, and is almost 0-1/10 today. She notes that it is worse in certain positions, such as raising the arm up, and improves when relaxing the arm. Past History Past Medical History: diabetes, hypertension, hyperlipidemia, stroke, other (h/o CVA w/ no residual symptoms, HTN, DM, HLD, CAD, bipolar disorder) Past Surgical History: No surgical history Social history: smoking (Current daily smoker), alcohol abuse (Drinks alcohol occasionally) Family history: no significant family history Medications and Allergies Allergies Allergy/AdvReac Type Severity Reaction Status Date / Time LANDON Inhibitors AdvReac Rash Verified 06/12/18 12:13 Iodine and Iodide Containing AdvReac Anaphylaxis Verified 06/12/18 12:14 Produc Home Medications Medication Instructions Recorded Confirmed Last Taken Type AtorvaSTATin [Lipitor] 20 mg PO QHS 06/12/18 05/05/20 Unknown History amLODIPine [Norvasc] 10 mg PO DAILY 06/12/18 05/05/20 Unknown History Insulin NPH, Human [NovoLIN N] 20 unit SQ BID 05/05/20 05/05/20 Unknown History Active Meds: Active Medications Acetaminophen (Tylenol) 650 mg PO Q4H PRN PRN Reason: Pain, Mild (1-3) Aspirin (Aspirin) 325 mg PO QDAY KIT Last Admin: 05/05/20 10:50 Dose: 325 mg Documented by: Bisacodyl (Dulcolax) 10 mg TX QDAY PRN PRN Reason: Constipation Dextrose (D50w (25gm) Syringe) 0 ml IV Q30MIN PRN; Protocol PRN Reason: Hypoglycemia Last Admin: 05/05/20 07:50 Dose: 20 ml Documented by: Heparin Sodium (Porcine) (Heparin) 5,000 unit SUB-Q Q8HR KIT Last Admin: 05/05/20 06:36 Dose: 5,000 unit Documented by: Insulin Human Lispro (Humalog) 0 unit SUB-Q ACHS [facility]; Protocol Last Admin: 05/05/20 11:13 Dose: Not Given Documented by: Magnesium Hydroxide (Milk Of Magnesia) 30 ml PO Q4H PRN PRN Reason: Constipation Metoclopramide HCl (Reglan) 10 mg PO Q6H PRN PRN Reason: Nausea And Vomiting Ondansetron HCl (Zofran) 4 mg IV Q8H PRN PRN Reason: Nausea And Vomiting Promethazine HCl (Phenergan) 25 mg TX Q6H PRN PRN Reason: Nausea And Vomiting Sodium Chloride (Sodium Chloride Flush Syringe 10 Ml) 10 ml IV BID [facility] Last Admin: 05/05/20 11:23 Dose: 10 ml Documented by: Sodium Chloride (Sodium Chloride Flush Syringe 10 Ml) 10 ml IV PRN PRN PRN Reason: LINE FLUSH Review of Systems All systems: negative Musculoskeletal: other (left shoulder pain) Physical Examination - Vital Signs Vital Signs: Vital Signs Temp Pulse Resp BP Pulse Ox 98.0 F 118 H 18 114/91 99 05/04/20 22:07 05/04/20 22:07 05/04/20 22:07 05/04/20 22:07 05/04/20 22:07 - Physical Exam Narrative exam: Patient is alert, awake, oriented x4, follows complex commands. No dysarthria or aphasia noted. EOMI, VFF, tongue midline, bilaterally intact to LT, no facial weakness noted. 5/5 strength in all extremities. Bilaterally intact light touch. Bilaterally intact to FTN and HTS. Patient noted to have pain in left shoulder upon abduction and posterior rotation, which improves upon adduction. - Constitutional General appearance: comfortable - Level of Consciousness 1a. Level of Consciousness: alert/keenly responsive - LOC Questions 1b. LOC Questions: answers both correctly - LOC Command 1c. LOC Commands: performs tasks correctly - Best Gaze 2. Best Gaze: normal - Visual 3. Visual: no visual loss - Facial Palsy 4. Facial Palsy: normal symmetrical movement - Motor Arm 5a. Motor Arm Left: no drift 5b. Motor Arm Right: no drift - Motor Leg 6a. Motor Leg Left: no drift 6b. Motor Leg Right: no drift - Limb Ataxia 7. Limb Ataxia: absent - Sensory 8. Sensory: normal - Best Language 9. Best Language: no aphasia - Dysarthria 10. Dysarthria: normal - Extinction and Inattention 11. Extinction/Inattention: no abnormality - Scoring Total Score: 0 Stroke Severity: No Stroke Symptoms Results - Laboratory Findings CBC and BMP: 05/04/20 22:49 05/04/20 22:49 Abnormal Lab Findings: Abnormal Labs 05/04/20 05/04/20 05/04/20 22:49 22:49 22:49 WBC 12.5 H Hgb 14.8 H Hct 44.6 H Prowers % (Auto) 9.6 H [place] # 1.2 H Seg Neutrophils % 75.0 H Seg Neutrophils # 9.3 H PT 12.1 L POC Glucose Calcium 10.3 H 05/05/20 08:38 WBC Hgb Hct Prowers % (Auto) Prowers # Seg Neutrophils % Seg Neutrophils # PT POC Glucose 153 H Calcium Assessment and Plan Patient is a 69 y/o woman w/ a h/o CVA w/ no residual symptoms, HTN, DM, HLD, CAD, who p/w LUE numbness. According to the patient's clinical findings, it is likely that she likely has localized shoulder joint disease. Patient did not have any complaints of LUE weakness or numbness when detailed history was taken today. In addition, left shoulder pain was elicited with abduction of LUE and external rotation. Plan: 1. Left shoulder pain: - More likely localized shoulder joint disease. Less likely due to TIA, as patient only c/o pain, and did not complain of any weakness or numbness - MRI brain: no acute abnormalities. - CT head: no acute abnormalities - Echo: pending - Cont. ASA - Cont. statin. LDL goal <70 - Telemetry monitoring while in house - PT/OT/ST - DVT Ppx: Recommend lovenox - Recommend further workup of Left shoulder joint pain per primary team. 2. Hypertension: - Recommend BP goal of normotension, as no infarct noted on MRI. - Will sign off, as neurologic investigations are complete, and treatment plan is in place. Please call with any questions. Thank you for allowing me to take part in the care of this patient. Fabien Acosta MD Neurology This clinical encounter was provided via live telemedicine platform. Consultative service was provided for neurology to support local providers. The Acute Teleneurology team should be contacted with any neurologic worsening or clinical changes, new test results, or new patient history that is reported to or discovered by the local team following completion of the teleneurology consultation, specifically that which has the potential to impact the consultat ping recommendations. Patient/Family was informed the Neurology Consult would happen via TeleHealth consult by way of interactive audio and video telecommunications and consented to receiving care in this manner. Due to the potential for life-threatening deterioration due to underlying neurologic illness, and limited resources available for patient care, telemedicine was used as means of patient care. Telemedicine consultation is limited in the extent of physical exam that can be virtually provided. Time spent evaluating patient includes time for face to face visit via telemedicine, review of medical records, imaging studies and discussion of findings with providers, the patient and/or family.
[2020-05-05] MEDS ORDERED: amLODIPine 10 MG TAB PO SCH (12:00)
--- NOTE | 2020-05-05 15:06 | Discharge Summary ---
Providers - Providers Date of Admission: 05/05/20 00:55 Date of discharge: 05/05/20 Attending physician: ANN-MARIE PIEDRA 05/05/20 01:10 Consult to Dietitian/Nutrition [CONS] Routine Physician Instructions: Reason For Exam: Reason for Consult: Diet education Occupational Therapy Evaluate and Treat [CONS] Routine Comment: Reason For Exam: Neuro deficits Physical Therapy Evaluation and Treat [CONS] Routine Comment: Reason For Exam: Neuro deficits 05/05/20 01:17 Consult to Physician [CONS] Routine Comment: Consulting Provider: BOUCHRA STUART Physician Instructions: Reason For Exam: TIA Primary care physician: NSH TEACHER Hospitalization Condition: Stable Pertinent studies: Head CT, carotid Doppler, brain MRI, shoulder x-ray, 2D echocardiogram Hospital course: Patient is a 69 y/o woman w/ a h/o CVA w/ no residual symptoms, HTN, DM, HLD, CAD, who p/w LUE numbness. According to the patient's clinical findings, it is likely that she likely has localized shoulder joint disease. Patient did not have any complaints of LUE weakness or numbness when detailed history was taken today. In addition, left shoulder pain was elicited with abduction of LUE and external rotation. MRI brain was negative for any stroke. Left shoulder x-ray showed no acute fracture or any acute pathology. Neurology was evaluated and recommended outpatient follow-up. Patient was then discharged home in stable condition. Discharge diagnosis: Left shoulder pain: Ruled out TIA or acute CVA - More likely localized shoulder joint disease. Less likely due to TIA, as patient only c/o pain, and did not complain of any weakness or numbness - MRI brain: no acute abnormalities. - CT head: no acute abnormalities - Cont. ASA and statin - Cont. statin. LDL goal <70 -Left shoulder x-ray showed no acute fracture -Recommended further follow-up as outpatient Hypertension: -Continue home meds. Diabetes mellitus type 2, resume home meds, consistent carb diet Hyperlipidemia , continue statin History of CVA without any residual symptom, continue aspirin and statin Physical exam: GENERAL: well-developed and well-nourished elderly female lying on bed appeared to be in no discomfort. HEENT: Normocephalic. Atraumatic. No conjunctival congestion or icterus. Patient has moist mucous membranes. NECK: Supple. Trachea midline. CHEST/LUNGS: Clear to auscultated bilaterally, breathing nonlabored. No wheezes crackles or rhonchi. HEART/CARDIOVASCULAR: Regular in rate and rhythm. S1 and S2 positive. ABDOMEN: Abdomen is soft, nontender. Patient has normal bowel sounds. SKIN: There is no rash. Warm and dry. NEURO: No focal motor deficit. Follows command. MUSCULOSKELETAL: left shoulder pain was elicited with abduction of LUE and external rotation EXTRIMITY: No edema, no cyanosis or clubbing. PSYCH: Cooperative. Disposition: DC-01 TO HOME OR SELFCARE Time spent for discharge: 34 minutes Core Measure Documentation - Palliative Care Palliative Care/ Comfort Measures: Not Applicable - Core Measures Any of the following diagnoses?: none Exam - Constitutional Vitals: Temp Pulse Resp BP Pulse Ox 98.3 F 87 20 154/72 94 05/05/20 11:07 05/05/20 12:23 05/05/20 11:07 05/05/20 12:23 05/05/20 11:07 Plan Activity: advance as tolerated Weight Bearing Status: Non-Weight Bearing (on affected hand) Diet: diabetic Follow up with: PRIMARY CARE, [Primary Care Provider] - 7 Days Prescriptions: Aspirin EC [Halfprin EC] 81 mg PO QDAY #30 tablet.
--- NOTE | 2020-05-05 16:33 | XRay Report ---
LEFT SHOULDER 3 VIEWS INDICATION / CLINICAL INFORMATION: pain COMPARISON: None available. FINDINGS: BONES / JOINT(S): No acute fracture or subluxation. No significant arthritis. SOFT TISSUES: No significant abnormality. ADDITIONAL FINDINGS: None. Signer Name: Philip Rios MD Signed: 05/05/2020 4:28 PM Workstation Name: [id number]
[2020-05-05 16:38] VITALS: BP 151/71
[2020-05-05] MEDS ORDERED: INSULIN NPH, HUMAN 100 UNIT/1 ML SUB-Q SCH (17:00)
--- NOTE | 2020-05-05 17:26 | Vascular Lab Report ---
"DUPLEX DOPPLER ULTRASOUND CAROTID, BILATERAL INDICATION: Left-sided weakness. FINDINGS: RIGHT CAROTID: Mild plaque Right CCA velocity: 89 cm/sec. Right ICA peak systolic velocity: 77 cm/sec. ICA/CCA PSV Ratio: 0.9. Right Vertebral Artery: Antegrade flow. LEFT CAROTID: Mild plaque Left CCA velocity: 67 cm/sec. Left ICA peak systolic velocity: 103 cm/sec. ICA/CCA PSV Ratio: 1.5. Left Vertebral Artery: Antegrade flow. IMPRESSION: 1. Right Internal Carotid Artery: Less than 50% diameter stenosis. 2. Left Internal Carotid Artery: Less than 50% diameter stenosis. Velocity criteria are extrapolated from diameter data as defined by the Society of Radiologists in Ul trasound Consensus Conference, Radiology 2003; 229;340-346. Degree of Stenosis (%) || ICA PSV (cm/sec) || Plaque estimate (%) || ICA/CCA PSV Ratio Normal <125 None <2.0 <50 <125 <50 <2.0 50-69 125-230 50 2.0-4.0 70 but less than 100 >230 50 >4.0 Near occlusion High, low, or none visible variable Total occlusion None visible; no lumen N/A Signer Name: Rick Hart MD Signed: 05/05/2020 5:21 PM Workstation Name: [id number]"
== END 2020-05-05 17:49 | disposition home or self-care (01) ==
LOC: ED 22:02 → INTOOBSV 05-05 00:55 → 4A 05-05 00:55
PROVIDERS: ADMIT Internal Medicine Geriatric Medicine; ATTEND Internal Medicine
DX: G45.9 Transient cerebral ischemic attack, unspecified (principal); E11.65 Type 2 diabetes mellitus with hyperglycemia; I10 Essential (primary) hypertension; E78.5 Hyperlipidemia, unspecified; E11.40 Type 2 diabetes mellitus with diabetic neuropathy, unspecified; I25.10 Atherosclerotic heart disease of native coronary artery without angina pectoris; F31.9 Bipolar disorder, unspecified; Z86.73 Personal history of transient ischemic attack (TIA), and cerebral infarction without residual deficits; F17.200 Nicotine dependence, unspecified, uncomplicated; Z79.4 Long term (current) use of insulin; Z79.899 Other long term (current) drug therapy; Z91.048 Other nonmedicinal substance allergy status; Z88.8 Allergy status to other drugs, medicaments and biological substances
CPT/HCPCS: 36415; 70450; 70551; 73030; 80048; 81001; 82805; 82962; 84484; 85025; 85610; 85730; 93005; 93306; 93880; 96372; 96374; 96375; 97161; 99291; G0378; J1644; J1815

== ENCOUNTER 2021-11-16 11:50 | Emergency (ER) | payer MEDICARE ==
[2021-11-16 11:55] VITALS: BP 181/106
[2021-11-16] MEDS ORDERED: SODIUM CHLORIDE 0.9% 1000 ML 1,000 ML IV ONE (12:28)
--- NOTE | 2021-11-16 12:33 | Emergency Department Report ---
ED General Adult HPI - General Chief complaint: Hyperglycemia Stated complaint: high blood sugar Time Seen by Provider: 11/16/21 12:20 Source: patient, EMS Mode of arrival: Stretcher Limitations: No Limitations - History of Present Illness Initial comments: Patient is 70 years old female with history of hypertension, diabetes and coronary artery disease. Patient presented to the ER via EMS for evaluation of high blood sugar according to the patient report. Patient denied any any symptoms except for cough. She denied any chest pain, shortness of breath, abdominal pain, nausea or vomiting. Patient stated that she is compliant with her insulin. -: days(s) Severity scale (0 -10): 0 Associated Symptoms: denies other symptoms, cough - Related Data Home Medications Medication Instructions Recorded Confirmed Last Taken AtorvaSTATin [Lipitor] 20 mg PO QHS 06/12/18 05/05/20 Unknown amLODIPine 10 mg PO DAILY 06/12/18 05/05/20 Unknown Insulin NPH, Human [NovoLIN N] 20 unit SQ BID 05/05/20 05/05/20 Unknown Previous Rx's Medication Instructions Recorded Last Taken Type Acetaminophen [Acetaminophen TAB] 650 mg PO Q4H PRN tablet 05/05/20 Unknown Rx Aspirin EC [Halfprin EC] 81 mg PO QDAY #30 tablet. 05/05/20 Unknown Rx Allergies Allergy/AdvReac Type Severity Reaction Status Date / Time LANDON Inhibitors AdvReac Rash Verified 06/12/18 12:13 Iodine and Iodide Containing AdvReac Anaphylaxis Verified 06/12/18 12:14 Produc ED Review of Systems ROS: Stated complaint: high blood sugar Other details as noted in HPI Comment: All other systems reviewed and negative Constitutional: denies: chills, fever Respiratory: denies: cough, shortness of breath, SOB with exertion Cardiovascular: denies: chest pain, palpitations Gastrointestinal: denies: abdominal pain, nausea, vomiting Musculoskeletal: denies: back pain Neurological: denies: headache, weakness, numbness, paresthesias, confusion, abnormal gait ED Past Medical Hx - Past Medical History Previous Medical History?: Yes Hx Hypertension: Yes Hx CVA: Yes (x2 old left side weakness.) Hx Heart Attack/AMI: No Hx Congestive Heart Failure: No Hx Diabetes: Yes Hx Pulmonary Embolism: No Hx GERD: No Hx Liver Disease: No Hx Renal Disease: No Hx Sickle Cell Disease: No Hx Arthritis: No Hx Headaches / Migraines: No Hx Seizures: No Hx Kidney Stones: No Hx Psychiatric Treatment: No Hx Asthma: No Hx COPD: No Hx Tuberculosis: No Hx Dementia: No Hx HIV: No - Surgical History Hx Coronary Stent: No Hx Open Heart Surgery: No Hx Pacemaker: No Hx Internal Defibrillator: No Hx Cholecystectomy: No Hx Appendectomy: No Hx Breast Surgery: No Additional Surgical History: sinus - Social History Smoking Status: Current Every Day Smoker - Medications Home Medications: Home Medications Medication Instructions Recorded Confirmed Last Taken Type AtorvaSTATin [Lipitor] 20 mg PO QHS 06/12/18 05/05/20 Unknown History amLODIPine 10 mg PO DAILY 06/12/18 05/05/20 Unknown History Acetaminophen [Acetaminophen TAB] 650 mg PO Q4H PRN tablet 05/05/20 Unknown Rx Aspirin EC [Halfprin EC] 81 mg PO QDAY #30 tablet. 05/05/20 Unknown Rx Insulin NPH, Human [NovoLIN N] 20 unit SQ BID 05/05/20 05/05/20 Unknown History ED Physical Exam - General Limitations: No Limitations General appearance: alert, in no apparent distress - Head Head exam: Present: atraumatic, normocephalic, normal inspection - Eye Eye exam: Present: normal appearance, PERRL - ENT ENT exam: Present: mucous membranes dry - Neck Neck exam: Present: normal inspection, full ROM. Absent: tenderness, meni ngismus - Respiratory Respiratory exam: Present: normal lung sounds bilaterally. Absent: respiratory distress, wheezes, rales, rhonchi, accessory muscle use, decreased breath sounds, prolonged expiratory - Cardiovascular Cardiovascular Exam: Present: regular rate, normal rhythm, normal heart sounds - GI/Abdominal GI/Abdominal exam: Present: soft, normal bowel sounds. Absent: distended, tenderness, guarding, rebound, rigid, organomegaly, mass, bruit, pulsatile mass, hernia - Extremities Exam Extremities exam: Present: normal inspection, full ROM, normal capillary refill. Absent: tenderness - Back Exam Back exam: Present: normal inspection, full ROM. Absent: CVA tenderness (R), CVA tenderness (L) - Neurological Exam Neurological exam: Present: alert, oriented X3, CN II-XII intact, normal gait, reflexes normal. Absent: motor sensory deficit - Psychiatric Psychiatric exam: Present: normal mood - Skin Skin exam: Present: warm, intact, normal color ED Course Vital Signs 11/16/21 11:51 Temperature 97.9 F Pulse Rate 98 H Respiratory 20 Rate Blood Pressure 181/106 [Left] O2 Sat by Pulse 98 Oximetry ED Medical Decision Making - Lab Data Result diagrams: 11/16/21 13:54 11/16/21 13:54 - Medical Decision Making Patient is 70 years old female with history of hypertension, diabetes and coronary artery disease. Patient presented to the ER via EMS for evaluation of high blood sugar according to the patient report. Patient denied any any symptoms except for cough. She denied any chest pain, shortness of breath, abdominal pain, nausea or vomiting. Patient stated that she is compliant with her insulin. Patient started on normal saline. Patient all of a sudden decided that she does not want to stay and she will go home. I explained to her thoroughly that she need immediate attention for her hyperglycemia including fluids and insulin and possible admission. Patient stated that she does not want to stay. Patient is alert, oriented x3 no acute distress. Patient is able to make sound decision. Patient signed AGAINST MEDICAL ADVICE. Patient did not give a reason for leaving AGAINST MEDICAL ADVICE. I strongly advised the patient to follow-up with her primary care physician as soon as possible and to come to the ER or go to another ER. Patient understood the instruction very well. Critical care attestation.: If time is entered above; I have spent that time in minutes in the direct care of this critically ill patient, excluding procedure time. ED Disposition Clinical Impression: Acute hyperglycemia Disposition: 07 LEFT AWOL/ELOPED Is pt being admited?: No Condition: Stable Instructions: Hyperglycemia Referrals: PRIMARY CARE, [Primary Care Provider] - 3-5 Days
--- NOTE | 2021-11-16 13:36 | XRay Report ---
CHEST 2 VIEWS INDICATION / CLINICAL INFORMATION: Lightheadedness/Dizziness. COMPARISON: One view of the chest from 06/12/2018. FINDINGS: SUPPORT DEVICES: None. HEART / MEDIASTINUM: No significant abnormality. LUNGS / PLEURA: No significant pulmonary abnormality. No significant pleural effusion. No pneumothora x. ADDITIONAL FINDINGS: No significant additional findings. IMPRESSION: 1. No acute abnormality of the chest. Signer Name: Cash Mendez MD Signed: 11/16/2021 1:31 PM Workstation Name: [id number]
[2021-11-16 14:36] LABS: Basophils # (Auto) 0.1 K/mm3 (0.0-0.1); Eosinophils # (Auto) 0.1 K/mm3 (0.0-0.4); Eosinophils % (Auto) 1.1 % (0.0-4.3); Hematocrit 39.5 % (30.3-42.9); Hemoglobin 12.6 gm/dl (10.1-14.3); Lymphocytes # (Auto) 2.1 K/mm3 (1.2-5.4); Lymphocytes % (Auto) 20.6 % (13.4-35.0); Mean Corpuscular HGB Conc 32 % (30-34); Mean Corpuscular Volume 89 fl (79-97); Monocytes % (Auto) 9.9 % (0.0-7.3); Platelet Count 284 K/mm3 (140-440); Red Blood Count 4.46 M/mm3 (3.65-5.03); Red Cell Distribution Width 14.6 % (13.2-15.2)
[2021-11-16 14:47] LABS: BUN/Creatinine Ratio 15; Blood Urea Nitrogen 19 mg/dL (7-17); Calcium 9.8 mg/dL (8.4-10.2); Hemolysis Index 14
[2021-11-16 15:10] LABS: Bilirubin,Urine NEG (Negative); Blood,Urine NEG (Negative); Color,Urine Yellow (Yellow); RBC,Urine < 1.0 /HPF (0.0-6.0); Urobilinogen,Urine < 2.0 mg/dL (<2.0); WBC,Urine < 1.0 /HPF (0.0-6.0)
--- NOTE | 2021-11-17 09:38 | Electrocardiograph Report ---
[facility] Test Date: 2021-11-16 Test Time: 12:48:05 Pat Name: BILL PRATHER Department: Room: Gender: F Library Assistant: elise : 1950 Requested By: HERMINIO VALLES Order Number: [id number] Reading MD: Mundo Tiwari Measurements Intervals [place] Rate: 89 P: 57 MT: 192 QRS: -36 QRSD: 86 T: 114 QT: 405 QTc: 493 Interpretive Statements Sinus rhythm Atrial premature complex Left axis deviation Nonspecific T abnormalities, lateral leads No previous ECG available for comparison Electronically Signed On 11-17-2021 9:38:13 EST by Mundo Tiwari
== END 2021-11-16 14:31 | disposition left against medical advice (07) ==
LOC: ED 11:50
DX: E11.65 Type 2 diabetes mellitus with hyperglycemia (principal); F17.200 Nicotine dependence, unspecified, uncomplicated; I10 Essential (primary) hypertension; Z88.8 Allergy status to other drugs, medicaments and biological substances; Z91.041 Radiographic dye allergy status
CPT/HCPCS: 36415; 71046; 80048; 81001; 82140; 84484; 85025; 93005; 96360; 99284; J7030; Q0162

== ENCOUNTER 2021-12-02 18:05 | Inpatient (IN) | payer MEDICARE, OTHER ==
[2021-12-02 19:06] LABS: Basophils # (Auto) 0.1 K/mm3 (0.0-0.1); Basophils % (Auto) 0.8 % (0.0-1.8); Eosinophils # (Auto) 0.1 K/mm3 (0.0-0.4); Eosinophils % (Auto) 0.8 % (0.0-4.3); Hematocrit 39.8 % (30.3-42.9); Hemoglobin 12.8 gm/dl (10.1-14.3); Lymphocytes # (Auto) 1.8 K/mm3 (1.2-5.4); Lymphocytes % (Auto) 15.7 % (13.4-35.0); Mean Corpuscular HGB Conc 32 % (30-34); Mean Corpuscular Volume 89 fl (79-97); Monocytes # (Auto) 0.9 K/mm3 (0.0-0.8); Monocytes % (Auto) 7.7 % (0.0-7.3); Platelet Count 280 K/mm3 (140-440); Red Blood Count 4.49 M/mm3 (3.65-5.03); Red Cell Distribution Width 14.4 % (13.2-15.2)
[2021-12-03] MEDS ORDERED: SODIUM CHLORIDE 0.9% 1000 ML 1,000 ML IV ONE (01:26)
--- NOTE | 2021-12-03 01:32 | Emergency Department Report ---
HPI - General Chief Complaint: Hyperglycemia Time Seen by Provider: 12/03/21 01:21 - HPI HPI: 71-year-old female with history of insulin-dependent diabetes mellitus presents from her doctor's office due to hyperglycemia over the last month. She states her blood sugars have been in the 500s. Although the patient is alert and oriented to self, time, and place, she is slightly confused and is unsure of how/why she ended up here in the emergency department. However, she says she went to see her doctor earlier today and was sent here. She notes that for the past month she has had difficulty walking requiring use of a cane or wheelchair. She notes that for the past few weeks she has had congestion and cough but no other symptoms. She went to see her doctor today because of the elevated blood sugars and was sent to the emergency department for further evaluation. She reports that yesterday she tripped and fell, hitting her head. She is unsure of if she lost consciousness. She denies any associated fever/chills, headache, vision change, neck pain, chest pain, shortness of breath, abdominal pain, nausea/vomiting, focal weakness, numbness, or any other complaints nonetheless, given her clinical condition and confusion further details of the HPI are limited. ED Past Medical Hx - Past Medical History Hx Hypertension: Yes Hx CVA: Yes (x2 old left side weakness.) Hx Heart Attack/AMI: No Hx Congestive Heart Failure: No Hx Diabetes: Yes Hx Pulmonary Embolism: No Hx GERD: No Hx Liver Disease: No Hx Renal Disease: No Hx Sickle Cell Disease: No Hx Arthritis: No Hx Headaches / Migraines: No Hx Seizures: No Hx Kidney Stones: No Hx Psychiatric Treatment: No Hx Asthma: No Hx COPD: No Hx Tuberculosis: No Hx Dementia: No Hx HIV: No - Surgical History Hx Coronary Stent: No Hx Open Heart Surgery: No Hx Pacemaker: No Hx Internal Defibrillator: No Hx Cholecystectomy: No Hx Appendectomy: No Hx Breast Surgery: No Additional Surgical History: sinus - Social History Smoking Status: Current Every Day Smoker - Medications Home Medications: Home Medications Medication Instructions Recorded Confirmed Last Taken Type AtorvaSTATin [Lipitor] 20 mg PO QHS 06/12/18 05/05/20 Unknown History amLODIPine 10 mg PO DAILY 06/12/18 05/05/20 Unknown History Acetaminophen [Acetaminophen TAB] 650 mg PO Q4H PRN tablet 05/05/20 Unknown Rx Aspirin EC [Halfprin EC] 81 mg PO QDAY #30 tablet. 05/05/20 Unknown Rx Insulin NPH, Human [NovoLIN N] 20 unit SQ BID 05/05/20 05/05/20 Unknown History ED Review of Systems ROS: Stated complaint: high blood sugar Other details as noted in HPI Comment: All other systems reviewed and negative Constitutional: denies: chills, fever Eyes: denies: eye pain, vision change ENT: congestion. denies: throat pain Respiratory: cough. denies: shortness of breath Cardiovascular: denies: chest pain, palpitations Gastrointestinal: denies: abdominal pain, nausea, vomiting Genitourinary: denies: dysuria, frequency Musculoskeletal: denies: back pain, arthralgia Skin: denies: rash, lesions Neurological: denies: headache, weakness, numbness Physical Exam - Physical Exam Vital Signs: Vital Signs 12/02/21 18:06 Temperature 97.6 F Pulse Rate 81 Respiratory 16 Rate Blood Pressure 190/94 [Left] O2 Sat by Pulse 99 Oximetry Physical Exam: GENERAL: Frail and elderly appearing female in no acute distress. HEAD: Normocephalic. No obvious signs of trauma. ENT: Dry mucous membranes. EYES: Extraocular movements are intact. Pupils are equal round and reactive to light bilaterally NECK: Supple. Full ROM is intact. Trachea is midline. LUNGS: Nonlabored breathing. Equal chest rise bilaterally. There are scattered rales throughout the bilateral lung hemphill. No wheezes or rhonchi appreciated. CARDIOVASCULAR: Regular rate and rhythm. No murmurs or rubs. VASCULAR: Cap refill < 2 seconds ABDOMEN: Abdomen is soft and nondistended. There is no significant tenderness, guarding or rebound. SKIN: Skin is warm and dry NEURO: Patient is awake, alert, and oriented to person place and time but not situation. house servant II-XII grossly intact. No focal deficits. Normal motor and sensory exam throughout. Normal speech. MUSCULOSKELETAL: No obvious deformities. No significant tenderness. Normal ROM throughout. BACK/SPINE: No midline tenderness or step-offs of the C/T/L spine. No costovertebral angle tenderness. ED Course Vital Signs 12/02/21 18:06 Temperature 97.6 F Pulse Rate 81 Respiratory 16 Rate Blood Pressure 190/94 [Left] O2 Sat by Pulse 99 Oximetry ED Medical Decision Making - Lab Data Result diagrams: 12/03/21 01:43 12/03/21 03:17 Lab Results 12/02/21 12/02/21 12/02/21 Range/Units 18:37 18:37 18:37 WBC 11.4 H (4.5-11.0) K/mm3 RBC 4.49 (3.65-5.03) M/mm3 Hgb 12.8 (10.1-14.3) gm/dl Hct 39.8 (30.3-42.9) % MCV 89 (79-97) fl MCH 28 (28-32) pg MCHC 32 (30-34) % RDW 14.4 (13.2-15.2) % Plt Count 280 (140-440) K/mm3 Lymph % (Auto) 15.7 (13.4-35.0) % [place] % (Auto) 7.7 H (0.0-7.3) % Eos % (Auto) 0.8 (0.0-4.3) % Baso % (Auto) 0.8 (0.0-1.8) % Lymph # (Auto) 1.8 (1.2-5.4) K/mm3 [place] # (Auto) 0.9 H (0.0-0.8) K/mm3 Eos # (Auto) 0.1 (0.0-0.4) K/mm3 Baso # (Auto) 0.1 (0.0-0.1) K/mm3 Seg Neutrophils % 75.0 H (40.0-70.0) % Seg Neutrophils # 8.6 H (1.8-7.7) K/mm3 PT (12.2-14.9) Sec. INR (0.87-1.13) APTT (24.2-36.6) Sec. VBG pH 7.261 L (7.320-7.420) Sodium 135 L (137-145) mmol/L Potassium 4.1 (3.6-5.0) mmol/L Chloride 96.0 L (98-107) mmol/L Carbon Dioxide 23 (22-30) mmol/L Anion Gap 20 mmol/L BUN 31 H (7-17) mg/dL Creatinine 1.5 H (0.6-1.2) mg/dL Estimated GFR 41 ml/min BUN/Creatinine Ratio 21 % Glucose 371 H (65-100) mg/dL POC Glucose (70-105) mg/dL Ketones Quantitative (Negative) Calcium 10.0 (8.4-10.2) mg/dL Phosphorus (2.5-4.5) mg/dL Magnesium (1.7-2.3) mg/dL Total Bilirubin (0.1-1.2) mg/dL Direct Bilirubin (0-0.2) mg/dL Indirect Bilirubin mg/dL AST (5-40) units/L ALT (7-56) units/L Alkaline Phosphatase (35-129) units/L Ammonia (25-60) umol/L Troponin T (0.00-0.029) ng/mL NT-Pro-B Natriuret Pep (0-900) pg/mL Total Protein (6.3-8.2) g/dL Albumin (3.9-5) g/dL Albumin/Globulin Ratio % Lipase (13-60) units/L 12/03/21 12/03/21 12/03/21 Range/Units 01:43 01:43 01:43 WBC 9.4 (4.5-11.0) K/mm3 RBC 4.33 (3.65-5.03) M/mm3 Hgb 12.4 (10.1-14.3) gm/dl Hct 38.4 (30.3-42.9) % MCV 89 (79-97) fl MCH 29 (28-32) pg MCHC 32 (30-34) % RDW 14.4 (13.2-15.2) % Plt Count 283 (140-440) K/mm3 Lymph % (Auto) 14.4 (13.4-35.0) % [place] % (Auto) 7.5 H (0.0-7.3) % Eos % (Auto) 1.3 (0.0-4.3) % Baso % (Auto) 0.6 (0.0-1.8) % Lymph # (Auto) 1.4 (1.2-5.4) K/mm3 [place] # (Auto) 0.7 (0.0-0.8) K/mm3 Eos # (Auto) 0.1 (0.0-0.4) K/mm3 Baso # (Auto) 0.1 (0.0-0.1) K/mm3 Seg Neutrophils % 76.2 H (40.0-70.0) % Seg Neutrophils # 7.2 (1.8-7.7) K/mm3 PT 12.0 L (12.2-14.9) Sec. INR 0.80 L (0.87-1.13) APTT 24.3 (24.2-36.6) Sec. VBG pH (7.320-7.420) Sodium 133 L (137-145) mmol/L Potassium 4.3 (3.6-5.0) mmol/L Chloride 94.7 L (98-107) mmol/L Carbon Dioxide 23 (22-30) mmol/L Anion Gap 20 mmol/L BUN 34 H (7-17) mg/dL Creatinine 1.5 H (0.6-1.2) mg/dL Estimated GFR 41 ml/min BUN/Creatinine Ratio 23 % Glucose 669 H* (65-100) mg/dL POC Glucose (70-105) mg/dL Ketones Quantitative (Negative) Calcium 9.5 (8.4-10.2) mg/dL Phosphorus (2.5-4.5) mg/dL Magnesium (1.7-2.3) mg/dL Total Bilirubin 0.30 (0.1-1.2) mg/dL Direct Bilirubin < 0.2 (0-0.2) mg/dL Indirect Bilirubin 0.1 mg/dL AST 15 (5-40) units/L ALT 9 (7-56) units/L Alkaline Phosphatase 139 H (35-129) units/L Ammonia (25-60) umol/L Troponin T (0.00-0.029) ng/mL NT-Pro-B Natriuret Pep (0-900) pg/mL Total Protein 7.6 (6.3-8.2) g/dL Albumin 4.4 (3.9-5) g/dL Albumin/Globulin Ratio 1.4 % Lipase (13-60) units/L 12/03/21 12/03/21 12/03/21 Range/Units 01:43 01:43 01:43 WBC (4.5-11.0) K/mm3 RBC (3.65-5.03) M/mm3 Hgb (10.1-14.3) gm/dl Hct (30.3-42.9) % MCV (79-97) fl MCH (28-32) pg MCHC (30-34) % RDW (13.2-15.2) % Plt Count (140-440) K/mm3 Lymph % (Auto) (13.4-35.0) % [place] % (Auto) (0.0-7.3) % Eos % (Auto) (0.0-4.3) % Baso % (Auto) (0.0-1.8) % Lymph # (Auto) (1.2-5.4) K/mm3 [place] # (Auto) (0.0-0.8) K/mm3 Eos # (Auto) (0.0-0.4) K/mm3 Baso # (Auto) (0.0-0.1) K/mm3 Seg Neutrophils % (40.0-70.0) % Seg Neutrophils # (1.8-7.7) K/mm3 PT (12.2-14.9) Sec. INR (0.87-1.13) APTT (24.2-36.6) Sec. VBG pH (7.320-7.420) Sodium (137-145) mmol/L Potassium (3.6-5.0) mmol/L Chloride (98-107) mmol/L Carbon Dioxide (22-30) mmol/L Anion Gap mmol/L BUN (7-17) mg/dL Creatinine (0.6-1.2) mg/dL Estimated GFR ml/min BUN/Creatinine Ratio % Glucose (65-100) mg/dL POC Glucose (70-105) mg/dL Ketones Quantitative Small (Negative) Calcium (8.4-10.2) mg/dL Phosphorus (2.5-4.5) mg/dL Magnesium 2.10 (1.7-2.3) mg/dL Total Bilirubin (0.1-1.2) mg/dL Direct Bilirubin (0-0.2) mg/dL Indirect Bilirubin mg/dL AST (5-40) units/L ALT (7-56) units/L Alkaline Phosphatase (35-129) units/L Ammonia 26.0 (25-60) umol/L Troponin T 0.016 (0.00-0.029) ng/mL NT-Pro-B Natriuret Pep 1360 H (0-900) pg/mL Total Protein (6.3-8.2) g/dL Albumin (3.9-5) g/dL Albumin/Globulin Ratio % Lipase 18 (13-60) units/L 12/03/21 12/03/21 12/03/21 Range/Units 03:17 03:17 03:47 WBC (4.5-11.0) K/mm3 RBC (3.65-5.03) M/mm3 Hgb (10.1-14.3) gm/dl Hct (30.3-42.9) % MCV (79-97) fl MCH (28-32) pg MCHC (30-34) % RDW (13.2-15.2) % Plt Count (140-440) K/mm3 Lymph % (Auto) (13.4-35.0) % [place] % (Auto) (0.0-7.3) % Eos % (Auto) (0.0-4.3) % Baso % (Auto) (0.0-1.8) % Lymph # (Auto) (1.2-5.4) K/mm3 [place] # (Auto) (0.0-0.8) K/mm3 Eos # (Auto) (0.0-0.4) K/mm3 Baso # (Auto) (0.0-0.1) K/mm3 Seg Neutrophils % (40.0-70.0) % Seg Neutrophils # (1.8-7.7) K/mm3 PT (12.2-14.9) Sec. INR (0.87-1.13) APTT (24.2-36.6) Sec. VBG pH (7.320-7.420) Sodium 130 L (137-145) mmol/L Potassium 4.5 (3.6-5.0) mmol/L Chloride 94.5 L (98-107) mmol/L Carbon Dioxide 23 (22-30) mmol/L Anion Gap 17 mmol/L BUN 31 H (7-17) mg/dL Creatinine 1.5 H (0.6-1.2) mg/dL Estimated GFR 41 ml/min BUN/Creatinine Ratio 21 % Glucose 614 H* (65-100) mg/dL POC Glucose 556 H (70-105) mg/dL Ketones Quantitative (Negative) Calcium 9.9 (8.4-10.2) mg/dL Phosphorus 3.20 (2.5-4.5) mg/dL Magnesium 2.10 (1.7-2.3) mg/dL Total Bilirubin (0.1-1.2) mg/dL Direct Bilirubin (0-0.2) mg/dL Indirect Bilirubin mg/dL AST (5-40) units/L ALT (7-56) units/L Alkaline Phosphatase (35-129) units/L Ammonia (25-60) umol/L Troponin T (0.00-0.029) ng/mL NT-Pro-B Natriuret Pep (0-900) pg/mL Total Protein (6.3-8.2) g/dL Albumin (3.9-5) g/dL Albumin/Globulin Ratio % Lipase (13-60) units/L - EKG Data -: EKG Interpreted by Mn - EKG Data 12/03/21 06:07 Normal sinus rhythm. First-degree AV block. Otherwise normal intervals. No ectopy. No significant ST segment abnormalities. Nonspecific T wave inversions. - Radiology Data Radiology results: report reviewed - Medical Decision Making 71-year-old female who presented from her doctor's office due to elevated blood sugars in the 500s for the past month. Although the patient is ANO x2 and has a nonfocal neurologic exam, she seems slightly confused and is unsure of how she ended up here in the hospital today. She does note that she has had a few weeks of runny nose/cough and trouble walking for a month. She says she fell and hit her head yesterday but is unsure of if she lost consciousness. On physical examination, she is frail and elderly appearing and has very dry mucous membranes. She has a nonfocal neurologic exam and there is no obvious signs of trauma. Lung auscultation reveals scattered rails throughout. She has no significant pitting edema. The patient initially had labs drawn when she presented which revealed hyperglycemia and findings suggestive of GREGORY. However, these labs were drawn 6 hours ago and there was a delay in the patient being brought back to a room because her name was called several times from the waiting room and she did not answer until later in the night. Given that it has been 6 hours since labs were drawn and vitals were taken we will repeat labs and vitals before any interventions now. We will also obtain EKG and chest x- ray. In addition, given limited details of the HPI in a patient who is confused and says she fell and hit her head yesterday we will perform CT of the head and cervical spine to assess for evidence of intracranial bleeding, fracture, or dislocation given that the patient is older than 65 with possible trauma above the clavicles and altered mental status. Given her hyperglycemia and dry mucous membranes on exam we will give 1 L of IV fluids for now. After interviewing and assessing the patient, I reviewed her chart which shows that she does have a history of 2 strokes in the past with left-sided weakness. It is unclear whether the patient is in fact confused at her baseline mental state. Labs reveal no significant leukocytosis or anemia. Creatinine is mildly elevated at 1.5 with BUN of 34. Potassium is 4.3. The the patient's glucose is elevated at 669 with an anion gap of 20. With the venous pH of 7.26, this qualifies as DKA. Insulin drip has been ordered per DKA protocol. Troponin is negative. BNP is slightly elevated at 1360. Chest x-ray shows no acute abnormalities. CT of the head shows no acute abnormalities. CT of the cervical spine shows no acute abnormalities. I spoke with the patient regarding her severely elevated blood sugar and DKA which requires admission for insulin drip and fluids. She expressed unde rstanding and agreement with the plan of care. At 3:30 AM I spoke with Dr. Real on-call hospitalist regarding the case who accepts the patient for admission will assume care. Critical Care Time: Yes Critical care time in (mins) excluding proc time.: 40 Critical care attestation.: If time is entered above; I have spent that time in minutes in the direct care of this critically ill patient, excluding procedure time. Critical care time was spent in the evaluation/assessment, work-up and management of hyperglycemia with diabetic ketoacidosis and GREGORY requiring initiation of an IV insulin drip as well as frequent reevaluation and reassessment ED Disposition Clinical Impression: DKA (diabetic ketoacidosis), Metabolic encephalopathy, Hypertension, GREGORY (acute kidney injury) Disposition: 09 ADMITTED INPATIENT Is pt being admited?: Yes Condition: Critical
--- NOTE | 2021-12-03 02:02 | XRay Report ---
CHEST 2 VIEWS INDICATION / CLINICAL INFORMATION: rales on exam. COMPARISON: 11/16/21 FINDINGS: SUPPORT DEVICES: None. HEART / MEDIASTINUM: No significant abnormality. LUNGS / PLEURA: No significant pulmonary or pleural abnormality. No pneumothorax. ADDITIONAL FINDINGS: No significant additional findings. IMPRESSION: 1. No acute findings. Signer Name: Rudolph Palomino MD Signed: 12/03/2021 1:57 AM Workstation Name: [id number]
[2021-12-03 02:40] LABS: Basophils # (Auto) 0.1 K/mm3 (0.0-0.1); Basophils % (Auto) 0.6 % (0.0-1.8); Eosinophils # (Auto) 0.1 K/mm3 (0.0-0.4); Eosinophils % (Auto) 1.3 % (0.0-4.3); Hematocrit 38.4 % (30.3-42.9); Hemoglobin 12.4 gm/dl (10.1-14.3); Lymphocytes # (Auto) 1.4 K/mm3 (1.2-5.4); Lymphocytes % (Auto) 14.4 % (13.4-35.0); Mean Corpuscular HGB Conc 32 % (30-34); Mean Corpuscular Volume 89 fl (79-97); Monocytes # (Auto) 0.7 K/mm3 (0.0-0.8); Monocytes % (Auto) 7.5 % (0.0-7.3); Platelet Count 283 K/mm3 (140-440); Red Blood Count 4.33 M/mm3 (3.65-5.03); Red Cell Distribution Width 14.4 % (13.2-15.2)
[2021-12-03 02:52] LABS: INR 0.8 (0.87-1.13)
[2021-12-03 02:53] LABS: Partial Thromboplastin Time 24.3 Sec. (24.2-36.6)
[2021-12-03 02:58] LABS: Alanine Aminotransferase 9 units/L (7-56); Albumin 4.4 g/dL (3.9-5); BUN/Creatinine Ratio 23; Blood Urea Nitrogen 34 mg/dL (7-17); Calcium 9.5 mg/dL (8.4-10.2); Hemolysis Index 2
[2021-12-03 03:01] LABS: Bilirubin,Direct < 0.2 mg/dL (0-0.2)
[2021-12-03] MEDS ORDERED: DEXTROSE 50% IN WATER (25GM) 50 ML SYRINGE IV PRN ×2 (03:04→05:09)
--- NOTE | 2021-12-03 03:22 | Cat Scan Report ---
CT HEAD WITHOUT CONTRAST INDICATION / CLINICAL INFORMATION: head trauma + amnesia. TECHNIQUE: All CT scans at this location are performed using CT dose reduction for ALARA by means of automated exposure control. COMPARISON: CT dated 05/04/20 FINDINGS: HEMORRHAGE: None. EXTRA-AXIAL SPACES: Mildly prominent likely related to cortical atrophy. VENTRICULAR SYSTEM: Lateral ventricles are mildly enlarged but unchanged posterior related to deep at rophy. CEREBRAL PARENCHYMA: Small, bilateral, lacunar infarcts in the basal ganglia appear unchanged. Old ri ght occipital and left cerebellar infarcts are unchanged. No acute territorial infarct. MIDLINE SHIFT / HERNIATION: None. CEREBELLUM / BRAINSTEM: No significant abnormality. ORBITS: Normal as visualized. SOFT TISSUES: No significant abnormality. SKULL: No significant abnormality. PARANASAL SINUSES / MASTOID AIR CELLS: Normal as visualized. ADDITIONAL FINDINGS: None. IMPRESSION: 1. No acute intracranial abnormality. 2. Chronic and age-related findings appear stable. Signer Name: Rudolph Palomino MD Signed: 12/03/2021 3:18 AM Workstation Name: [id number]
--- NOTE | 2021-12-03 03:23 | Cat Scan Report ---
CT CERVICAL SPINE WITHOUT CONTRAST INDICATION / CLINICAL INFORMATION: fall. Head and neck trauma with amnesia. TECHNIQUE: Axial CT images were obtained through the cervical spine. Sagittal and coronal reformatted images were produced. All CT scans at this location are performed using CT dose reduction for ALARA by means of automated exposure control. COMPARISON: None available. FINDINGS: VERTEBRAE: No significant abnormality. ALIGNMENT: No significant abnormality. DISC SPACES: Mild discogenic spondylosis at C6-7. FACET JOINTS: Mild multilevel facet arthropathy. CRANIOCERVICAL JUNCTION:No significant abnormality. SPINAL CANAL: No significant abnormality. PARASPINAL SOFT TISSUES: No significant abnormality. ADDITIONAL FINDINGS: None. LUNG APICES: No significant abnormality of visualized lungs. IMPRESSION: 1. No acute fracture or subluxation. Signer Name: Rudolph Palomino MD Signed: 12/03/2021 3:19 AM Workstation Name: [id number]
[2021-12-03 03:59] LABS: Calcium 9.9 mg/dL (8.4-10.2)
[2021-12-03] MEDS ORDERED: D5W/0.45% NACL/KCL 20 MEQ 20 MEQ/1,000 ML BAG IV SCH (04:00)
[2021-12-03] MEDS ORDERED: INSULIN REGULAR, HUMAN 100 UNITS in SODIUM CHLORIDE 0.9% 99 ML IV SCH ×3 (04:00→09:00)
[2021-12-03] MEDS ORDERED: ONDANSETRON 4 MG/2 ML INJ IV PRN (05:09)
[2021-12-03] MEDS ORDERED: HYDROmorphone 1 MG/1 ML INJ IV PRN (05:09)
[2021-12-03] MEDS ORDERED: ALBUTEROL 2.5 MG/3 ML NEBU IH PRN (05:09)
[2021-12-03] MEDS ORDERED: ACETAMINOPHEN 325 MG TAB PO PRN (05:09)
[2021-12-03] MEDS ORDERED: MORPHINE 2 MG/1 ML INJ IV PRN (05:09)
--- NOTE | 2021-12-03 05:17 | History and Physical Report ---
History of Present Illness Date of examination: 12/03/21 Date of admission: 12/03/21 Chief complaint: Hyperglycemia History of present illness: 71-year-old female with history of insulin-dependent diabetes mellitus presents from her doctor's office due to hyperglycemia over the last month. She states her blood sugars have been in the 500s. Although the patient is alert and oriented to self, time, and place, she is slightly confused and is unsure of how/why she ended up here in the emergency department. However, she says she went to see her doctor earlier today and was sent here. She notes that for the past month she has had difficulty walking requiring use of a cane or wheelchair. She notes that for the past few weeks she has had congestion and cough but no other symptoms. She went to see her doctor today because of the elevated blood sugars and was sent to the emergency department for further evaluation. She reports that yesterday she tripped and fell, hitting her head. She is unsure of if she lost consciousness. She denies any associated fever/chills, headache, vision change, neck pain, chest pain, shortness of breath, abdominal pain, [place]/vomiting, focal weakness, numbness, or any other complaints nonetheless In the emergency room patient is found to have DKA patient blood glucose is 614, bicarb 23 anion gap 17 BUN 31 creatinine 1.5 also proBNP 11/21/1960 but chest x- ray shows no acute finding. CT head shows no acute intracranial abnormality. Chronic and age-related finding appears stable. She was going to admit the patient to the critical care unit we put the patient insulin drip as per protocol we will consult diabetic education Past History Past Medical History: diabetes, hypertension, stroke Past Surgical History: Other (Sinus surgery) Medications and Allergies Allergies Allergy/AdvReac Type Severity Reaction Status Date / Time LANDON Inhibitors AdvReac Rash Verified 12/02/21 18:32 Iodine and Iodide Containing AdvReac Anaphylaxis Verified 12/02/21 18:32 Produc Home Medications Medication Instructions Recorded Confirmed Last Taken Type AtorvaSTATin [Lipitor] 20 mg PO QHS 06/12/18 05/05/20 Unknown History amLODIPine 10 mg PO DAILY 06/12/18 05/05/20 Unknown History Acetaminophen [Acetaminophen TAB] 650 mg PO Q4H PRN tablet 05/05/20 Unknown Rx Aspirin EC [Halfprin EC] 81 mg PO QDAY #30 tablet. 05/05/20 Unknown Rx Insulin NPH, Human [NovoLIN N] 20 unit SQ BID 05/05/20 05/05/20 Unknown History Active Meds: Active Medications Dextrose (Dextrose 50% In Water (25gm) 50 Ml Syringe) 0 ml IV Q30MIN PRN; Protocol PRN Reason: Hypoglycemia Insulin Human Regular 100 (units/ Sodium Chloride) 100 mls @ 1 mls/hr IV TITR KIT; Protocol Potassium Chloride/Dextrose/Sod Cl (D5w/0.45% Nacl/Kcl 20 Meq) 20 meq in 1,000 mls @ 125 mls/hr IV DIRECT KIT Review of Systems All systems: negative Constitutional: fatigue, lethargy Respiratory: cough, congestion Neurological: confusion Exam - Constitutional Vitals: Temp Pulse Resp BP Pulse Ox 97.6 F 81 16 190/94 99 12/02/21 18:06 12/02/21 18:06 12/02/21 18:06 12/02/21 18:06 12/02/21 18:06 General appearance: Present: no acute distress, well-nourished - EENT Eyes: Present: PERRL ENT: hearing intact, clear oral mucosa - Neck Neck: Present: supple, normal ROM - Respiratory Respiratory effort: normal Respiratory: bilateral: diminished - Cardiovascular Heart Sounds: Present: S1 & S2. Absent: rub, click - Extremities Extremities: pulses symmetrical, No edema Peripheral Pulses: within normal limits - Abdominal General gastrointestinal: Present: soft, non-tender, non-distended, normal bowel sounds Female genitourinary: Present: normal - Integumentary Integumentary: Present: clear, warm, dry - Musculoskeletal Musculoskeletal: gait normal, strength equal bilaterally - Psychiatric Psychiatric: appropriate mood/affect, intact judgment & insight - Neurologic Neurologic: CNII-XII intact, moves all extremities HEART Score - HEART Score Troponin: Troponin T 0.016 ng/mL (0.00-0.029) 12/03/21 01:43 Results - Labs CBC & Chem 7: 12/03/21 01:43 12/03/21 03:17 Labs: Laboratory Last Values WBC 9.4 K/mm3 (4.5-11.0) 12/03/21 01:43 RBC 4.33 M/mm3 (3.65-5.03) 12/03/21 01:43 Hgb 12.4 gm/dl (10.1-14.3) 12/03/21 01:43 Hct 38.4 % (30.3-42.9) 12/03/21 01:43 MCV 89 fl (79-97) 12/03/21 01:43 MCH 29 pg (28-32) 12/03/21 01:43 MCHC 32 % (30-34) 12/03/21 01:43 RDW 14.4 % (13.2-15.2) 12/03/21 01:43 Plt Count 283 K/mm3 (140-440) 12/03/21 01:43 Lymph % (Auto) 14.4 % (13.4-35.0) 12/03/21 01:43 [place] % (Auto) 7.5 % (0.0-7.3) H 12/03/21 01:43 Eos % (Auto) 1.3 % (0.0-4.3) 12/03/21 01:43 Baso % (Auto) 0.6 % (0.0-1.8) 12/03/21 01:43 Lymph # (Auto) 1.4 K/mm3 (1.2-5.4) 12/03/21 01:43 [place] # (Auto) 0.7 K/mm3 (0.0-0.8) 12/03/21 01:43 Eos # (Auto) 0.1 K/mm3 (0.0-0.4) 12/03/21 01:43 Baso # (Auto) 0.1 K/mm3 (0.0-0.1) 12/03/21 01:43 Seg Neutrophils % 76.2 % (40.0-70.0) H 12/03/21 01:43 Seg Neutrophils # 7.2 K/mm3 (1.8-7.7) 12/03/21 01:43 PT 12.0 Sec. (12.2-14.9) L 12/03/21 01:43 INR 0.80 (0.87-1.13) L 12/03/21 01:43 APTT 24.3 Sec. (24.2-36.6) 12/03/21 01:43 VBG pH 7.261 (7.320-7.420) L 12/02/21 18:37 Sodium 130 mmol/L (137-145) L 12/03/21 03:17 Potassium 4.5 mmol/L (3.6-5.0) 12/03/21 03:17 Chloride 94.5 mmol/L (98-107) L 12/03/21 03:17 Carbon Dioxide 23 mmol/L (22-30) 12/03/21 03:17 Anion Gap 17 mmol/L 12/03/21 03:17 BUN 31 mg/dL (7-17) H 12/03/21 03:17 Creatinine 1.5 mg/dL (0.6-1.2) H 12/03/21 03:17 Estimated GFR 41 ml/min 12/03/21 03:17 BUN/Creatinine Ratio 21 % 12/03/21 03:17 Glucose 614 mg/dL (65-100) H* 12/03/21 03:17 POC Glucose 556 mg/dL (70-105) H 12/03/21 03:47 Ketones Quantitative Small (Negative) 12/03/21 01:43 Calcium 9.9 mg/dL (8.4-10.2) 12/03/21 03:17 Phosphorus 3.20 mg/dL (2.5-4.5) 12/03/21 03:17 Magnesium 2.10 mg/dL (1.7-2.3) 12/03/21 03:17 Total Bilirubin 0.30 mg/dL (0.1-1.2) 12/03/21 01:43 Direct Bilirubin < 0.2 mg/dL (0-0.2) 12/03/21 01:43 Indirect Bilirubin 0.1 mg/dL 12/03/21 01:43 AST 15 units/L (5-40) 12/03/21 01:43 ALT 9 units/L (7-56) 12/03/21 01:43 Alkaline Phosphatase 139 units/L (35-129) H 12/03/21 01:43 Ammonia 26.0 umol/L (25-60) 12/03/21 01:43 Troponin T 0.016 ng/mL (0.00-0.029) 12/03/21 01:43 NT-Pro-B Natriuret Pep 1360 pg/mL (0-900) H 12/03/21 01:43 Total Protein 7.6 g/dL (6.3-8.2) 12/03/21 01:43 Albumin 4.4 g/dL (3.9-5) 12/03/21 01:43 Albumin/Globulin Ratio 1.4 % 12/03/21 01:43 Lipase 18 units/L (13-60) 12/03/21 01:43 Microbiology: Microbiology 12/03/21 02:14 Peripheral/Venous Blood Culture - Preliminary Culture in Progress 12/03/21 01:43 Peripheral/Venous Blood Culture - Preliminary Culture in Progress - Imaging and Cardiology Chest x-ray: report reviewed CT Scan - head: report reviewed Assessment and Plan VTE prophylaxis?: Chemical Plan of care discussed with patient/family: Yes - Patient Problems (1) DKA (diabetic ketoacidosis) Current Visit: Yes Status: Acute Plan to address problem: Admit the patient to the medical ICU. NPO. IV fluid abnormal saline at the rate of 125 cc/h. Insulin drip as per protocol. We will do the serial BMP. We will also consult critical care evaluation and diabetic education (2) Diabetes Current Visit: No Status: Acute Plan to address problem: Patient is on insulin drip we will hold the home NPH insulin. Diabetic education (3) Hypertension Current Visit: No Status: Acute Plan to address problem: Hydralazine 10 mg IV every 6 hours as needed. We will continue the home medication. We will monitor the blood pressure closely (4) TIA (transient ischemic attack) Current Visit: No Status: Acute Plan to address problem: Stable. We will continue aspirin 81 mg daily and Lipitor 20 mg p.o. daily (5) Full code status Current Visit: No Status: Acute Plan to address problem: Patient is a full code (6) DVT prophylaxis Current Visit: No Status: Acute Plan to address problem: Heparin 5000 units subcu every 12 hours for DVT prophylaxis. Pepcid 20 mg p.o. twice daily for GI prophylaxis. Patient is a full code
[2021-12-03] MEDS ORDERED: SODIUM CHLORIDE 0.45% 1000 ML 1,000 ML IV SCH (06:00)
[2021-12-03 06:17] LABS: Calcium 9.2 mg/dL (8.4-10.2)
[2021-12-03] MEDS ORDERED: SODIUM CHLORIDE 0.9% 1000 ML 1,000 ML ONE (07:44)
[2021-12-03] MEDS ORDERED: IPRATROPIUM/ALBUTEROL SULFATE 3 ML AMPUL.NEB IH SCH (08:00)
[2021-12-03 08:17] LABS: Calcium 9.9 mg/dL (8.4-10.2)
--- NOTE | 2021-12-03 08:28 | Progress Note ---
Assessment and Plan Assessment and plan: History of present illness: 71-year-old female with history of insulin-dependent diabetes mellitus presents from her doctor's office due to hyperglycemia over the last month. She states her blood sugars have been in the 500s. Although the patient is alert and oriented to self, time, and place, she is slightly confused and is unsure of how/why she ended up here in the emergency department. However, she says she went to see her doctor earlier today and was sent here. She notes that for the past month she has had difficulty walking requiring use of a cane or wheelchair. She notes that for the past few weeks she has had congestion and cough but no other symptoms. She went to see her doctor today because of the elevated blood sugars and was sent to the emergency department for further evaluation. She reports that yesterday she tripped and fell, hitting her head. She is unsure of if she lost consciousness. She denies any associated fever/chills, headache, vision change, neck pain, chest pain, shortness of breath, abdominal pain, nausea/vomiting, focal weakness, numbness, or any other complaints nonetheless Hospital course to date: 12/03/2021: Pending picc line placement as patient had lost access. continue insulin gtt,fluids, npo until gap normalizes. Serial bmp ordered. Assessment and Plan # DKA (diabetic ketoacidosis) -Labs on admission: B, Bicarb 23, A, BUN :31, Cr: 1.5 -Admit the patient to the medical ICU. -NPO. -Insulin drip and IV fluids as per DKA protocol. (DO NOT SHUT OFF INSULIN GTT UNTIL ANION GAP IS CLOSED) -serial BMP. Monitor for closure of AG and normalization of BG -Critical care consultation #Type 2 Diabetes with hyperglycemia -Patient is on insulin drip we will hold the home NPH insulin. Diabetic education #Hypertension -Hydralazine 10 mg IV every 6 hours as needed. -Resume home amlodipine 10 mg po dialy #Mechanical Fall - appears to be mechanical and not new CVA. -CT brain negative -CT c-spine negative - physical therapy ordered #History of CVA -2 prior stroke in history based on old encounter, No residual symptoms from old CVA -doubt fall attributable to new cva. -resume home asa, statin #Coronary Artery Disease - documented in old notes Resume home aspirin, statin #Hyperlipidemia -Resume home statin #Acute kidney injury due to vasomotor nephropathy -Cr :1.5 this admission, baseline 1.0 in . -likely due to dehydration -IVF -will consult nephrology if renal fx worsens Full Code DVT ppx: heparin 5000 units subq q12hr The high probability of a clinically significant, sudden or life threatening deterioration of the [endo, renal] system(s) required my full and direct attention, intervention and personal management. The aggregate critical care time was [60] minutes. This time is in addition to time spent performing reported procedures but includes the following: [x] Data Review and interpretation [x] Patient assessment and monitoring of vital signs [x] Documentation [x] Medication orders and management History Interval history: No acute compliants. NAD. Did not have any idea what medications she takes when asked or what her blood sugars are at home. Hospitalist Physical - Physical exam Narrative exam: Physical Exam: VITAL SIGNS: Reviewed. GENERAL: The patient appears normally developed, Vital signs as documented. HEAD: No signs of head trauma. EYES: Pupils are equal. Extraocular motions intact. EARS: Hearing grossly intact. MOUTH: Oropharynx is normal. NECK: No adenopathy, no JVD. CHEST: Chest with clear breath sounds bilaterally. No wheezes, rales, or rhonchi. CARDIAC: Regular rate and rhythm. S1 and S2, without murmurs, gallops, or rubs. VASCULAR: No Edema. Peripheral pulses normal and equal in all extremities. ABDOMEN: Soft, non tender and non distended. No rebound or guarding, and no masses palpated. Bowel Sounds normal. MUSCULOSKELETAL: Good range of motion of all major joints. Extremities without clubbing, cyanosis or edema. NEUROLOGIC EXAM: Alert and oriented x 4. no focal sensory or strength deficits. PSYCHIATRIC: Mood normal. SKIN: detail exam as documented in skin assessment - Constitutional Vitals: Temp Pulse Resp BP Pulse Ox 97.6 F 81 16 190/94 99 12/02/21 18:06 12/02/21 18:06 12/02/21 18:06 12/02/21 18:06 12/02/21 18:06 General appearance: Present: no acute distress, well-nourished HEART Score - HEART Score Troponin: Troponin T 0.016 ng/mL (0.00-0.029) 12/03/21 01:43 Results - Labs CBC & Chem 7: 12/03/21 01:43 12/03/21 07:29 Labs: Laboratory Last Values WBC 9.4 K/mm3 (4.5-11.0) 12/03/21 01:43 RBC 4.33 M/mm3 (3.65-5.03) 12/03/21 01:43 Hgb 12.4 gm/dl (10.1-14.3) 12/03/21 01:43 Hct 38.4 % (30.3-42.9) 12/03/21 01:43 MCV 89 fl (79-97) 12/03/21 01:43 MCH 29 pg (28-32) 12/03/21 01:43 MCHC 32 % (30-34) 12/03/21 01:43 RDW 14.4 % (13.2-15.2) 12/03/21 01:43 Plt Count 283 K/mm3 (140-440) 12/03/21 01:43 Lymph % (Auto) 14.4 % (13.4-35.0) 12/03/21 01:43 [place] % (Auto) 7.5 % (0.0-7.3) H 12/03/21 01:43 Eos % (Auto) 1.3 % (0.0-4.3) 12/03/21 01:43 Baso % (Auto) 0.6 % (0.0-1.8) 12/03/21 01:43 Lymph # (Auto) 1.4 K/mm3 (1.2-5.4) 12/03/21 01:43 [place] # (Auto) 0.7 K/mm3 (0.0-0.8) 12/03/21 01:43 Eos # (Auto) 0.1 K/mm3 (0.0-0.4) 12/03/21 01:43 Baso # (Auto) 0.1 K/mm3 (0.0-0.1) 12/03/21 01:43 Seg Neutrophils % 76.2 % (40.0-70.0) H 12/03/21 01:43 Seg Neutrophils # 7.2 K/mm3 (1.8-7.7) 12/03/21 01:43 PT 12.0 Sec. (12.2-14.9) L 12/03/21 01:43 INR 0.80 (0.87-1.13) L 12/03/21 01:43 APTT 24.3 Sec. (24.2-36.6) 12/03/21 01:43 VBG pH 7.261 (7.320-7.420) L 12/02/21 18:37 Sodium 133 mmol/L (137-145) L 12/03/21 05:13 Potassium 4.4 mmol/L (3.6-5.0) 12/03/21 05:13 Chloride 97.4 mmol/L (98-107) L 12/03/21 05:13 Carbon Dioxide 20 mmol/L (22-30) L 12/03/21 05:13 Anion Gap 20 mmol/L 12/03/21 05:13 BUN 31 mg/dL (7-17) H 12/03/21 05:13 Creatinine 1.3 mg/dL (0.6-1.2) H 12/03/21 05:13 Estimated GFR 49 ml/min 12/03/21 05:13 BUN/Creatinine Ratio 24 % 12/03/21 05:13 Glucose 568 mg/dL (65-100) H* 12/03/21 05:13 POC Glucose 556 mg/dL (70-105) H 12/03/21 03:47 Ketones Quantitative Small (Negative) 12/03/21 01:43 Calcium 9.2 mg/dL (8.4-10.2) 12/03/21 05:13 Phosphorus 3.10 mg/dL (2.5-4.5) 12/03/21 05:18 Magnesium 2.10 mg/dL (1.7-2.3) 12/03/21 05:18 Total Bilirubin 0.30 mg/dL (0.1-1.2) 12/03/21 01:43 Direct Bilirubin < 0.2 mg/dL (0-0.2) 12/03/21 01:43 Indirect Bilirubin 0.1 mg/dL 12/03/21 01:43 AST 15 units/L (5-40) 12/03/21 01:43 ALT 9 units/L (7-56) 12/03/21 01:43 Alkaline Phosphatase 139 units/L (35-129) H 12/03/21 01:43 Ammonia 26.0 umol/L (25-60) 12/03/21 01:43 Troponin T 0.016 ng/mL (0.00-0.029) 12/03/21 01:43 NT-Pro-B Natriuret Pep 1360 pg/mL (0-900) H 12/03/21 01:43 Total Protein 7.6 g/dL (6.3-8.2) 12/03/21 01:43 Albumin 4.4 g/dL (3.9-5) 12/03/21 01:43 Albumin/Globulin Ratio 1.4 % 12/03/21 01:43 Lipase 18 units/L (13-60) 12/03/21 01:43 Microbiology: Microbiology 12/03/21 02:14 Peripheral/Venous Blood Culture - Preliminary Culture in Progress 12/03/21 01:43 Peripheral/Venous Blood Culture - Preliminary Culture in Progress Active Medications - Current Medications Current Medications: Generic Name Dose Route Start Last Admin Trade Name Freq PRN Reason Stop Dose Admin Acetaminophen 650 mg 12/03/21 05:09 Acetaminophen 325 Mg Tab PO Q4H PRN Pain MILD(1-3)/Fever >100.5/CRUZ Albuterol 2.5 mg 12/03/21 05:09 Albuterol 2.5 Mg/3 Ml Nebu IH Q4HRT PRN Shortness Of Breath Albuterol/Ipratropium 1 ampul 12/03/21 08:00 Ipratropium/Albuterol Sulfate 3 Ml Ampul.Neb IH Q6HRT [facility] Amlodipine Besylate 10 mg 12/03/21 10:00 Amlodipine 10 Mg Tab PO DAILY [facility] Aspirin 81 mg 12/03/21 10:00 Aspirin Ec 81 Mg Tab PO QDAY KIT Atorvastatin Calcium 20 mg 12/03/21 22:00 Atorvastatin 20 Mg Tab PO QHS [facility] Dextrose 0 ml 12/03/21 05:09 Dextrose 50% In Water (25gm) 50 Ml Syringe IV Q30MIN PRN Hypoglycemia Protocol Famotidine 10 mg 12/03/21 10:00 Famotidine 10 Mg Tab PO BID [facility] Heparin Sodium (Porcine) 5,000 unit 12/03/21 10:00 Heparin 5,000 Unit/1 Ml Vial SUB-Q Q12HR [facility] Hydromorphone HCl 0.5 mg 12/03/21 05:09 Hydromorphone 1 Mg/1 Ml Inj IV Q3H PRN Pain , Severe (7-10) Potassium Chloride/Dextrose/Sod Cl 20 meq in 1,000 mls @ 125 mls/hr 12/03/21 04:00 D5w/0.45% Nacl/Kcl 20 Meq IV DIRECT KIT Insulin Human Regular 100 100 mls @ 1 mls/hr 12/03/21 06:00 units/ Sodium Chloride IV TITR KIT Protocol 1 UNITS/HR Sodium Chloride 1,000 mls @ 125 mls/hr 12/03/21 06:00 Nacl 0.45% 1000 Ml IV DIRECT KIT Morphine Sulfate 2 mg 12/03/21 05:09 Morphine 2 Mg/1 Ml Inj IV Q4H PRN Pain, Moderate (4-6) Ondansetron HCl 4 mg 12/03/21 05:09 Ondansetron 4 Mg/2 Ml Inj IV Q8H PRN Nausea And Vomiting Sodium Chloride 10 ml 12/03/21 10:00 Sodium Chloride 0.9% 10 Ml Flush Syringe IV BID KIT Sodium Chloride 10 ml 12/03/21 05:09 Sodium Chloride 0.9% 10 Ml Flush Syringe IV PRN PRN LINE FLUSH
[2021-12-03] MEDS ORDERED: FAMOTIDINE 10 MG TAB PO SCH (10:00)
[2021-12-03] MEDS ORDERED: FAMOTIDINE 20 MG TAB PO SCH (10:00)
[2021-12-03] MEDS ORDERED: ASPIRIN EC 81 MG TAB PO SCH (10:00)
[2021-12-03] MEDS ORDERED: amLODIPine 10 MG TAB PO SCH (10:00)
[2021-12-03] MEDS ORDERED: HEPARIN 5,000 UNIT/1 ML VIAL SUB-Q SCH (10:00)
[2021-12-03 12:35] LABS: Calcium 9.7 mg/dL (8.4-10.2)
[2021-12-03 13:26] VITALS: BP 115/74
--- NOTE | 2021-12-03 13:33 | Discharge Summary ---
Providers - Providers Date of Admission: 12/03/21 05:09 Date of discharge: 12/03/21 Attending physician: NAINA HASKINS MD 12/03/21 03:04 Consult to Dietitian/Nutrition [CONS] Routine Physician Instructions: Reason For Exam: DKA Reason for Consult: Nutrition Recommendations Reason for Consult: Diet education 12/03/21 04:24 Consult to Physician [CONS] Routine Comment: Consulting Provider: MARKUS GARCIA Physician Instructions: Reason For Exam: dka 12/03/21 05:09 Consult to Dietitian/Nutrition [CONS] Routine Physician Instructions: Reason For Exam: DKA Reason for Consult: Nutrition Recommendations Reason for Consult: Diet education 12/03/21 08:24 Physical Therapy Evaluation and Treat [CONS] Routine Comment: Reason For Exam: debility Primary care physician: HANSEL ARMAS Hospitalization Reason for admission: dka Condition: Critical Hospital course: istory of present illness: 71-year-old female with history of insulin-dependent diabetes mellitus presents from her doctor's office due to hyperglycemia over the last month. She states her blood sugars have been in the 500s. Although the patient is alert and oriented to self, time, and place, she is slightly confused and is unsure of how/why she ended up here in the emergency department. However, she says she went to see her doctor earlier today and was sent here. She notes that for the past month she has had difficulty walking requiring use of a cane or wheelchair. She notes that for the past few weeks she has had congestion and cough but no other symptoms. She went to see her doctor today because of the elevated blood sugars and was sent to the emergency department for further evaluation. She reports that yesterday she tripped and fell, hitting her head. She is unsure of if she lost consciousness. She denies any associated fever/chills, headache, vision change, neck pain, chest pain, shortness of breath, abdominal pain, nausea/vomiting, focal weakness, numbness, or any other complaints nonetheless Hospital course to date: 12/03/2021: Pending picc line placement as patient had lost access. continue insulin gtt,fluids, npo until gap normalizes. Serial bmp ordered. 12/03/2021: Patient refusing therapy. Does not want to remain in hospital. Risks of leaving AMA explained to patient including . patient voiced understanding. ED RN obtained signature from patient on AMA form. Assessment and Plan # DKA (diabetic ketoacidosis) -Labs on admission: B, Bicarb 23, A, BUN :31, Cr: 1.5 -Admit the patient to the medical ICU. -NPO. -Insulin drip and IV fluids as per DKA protocol. (DO NOT SHUT OFF INSULIN GTT UNTIL ANION GAP IS CLOSED) -serial BMP. Monitor for closure of AG and normalization of BG -Critical care consultation #Type 2 Diabetes with hyperglycemia -Patient is on insulin drip we will hold the home NPH insulin. Diabetic education #Hypertension -Hydralazine 10 mg IV every 6 hours as needed. -Resume home amlodipine 10 mg po dialy #Mechanical Fall - appears to be mechanical and not new CVA. -CT brain negative -CT c-spine negative - physical therapy ordered #History of CVA -2 prior stroke in history based on old encounter, No residual symptoms from old CVA -doubt fall attributable to new cva. -resume home asa, statin #Coronary Artery Disease - documented in old notes Resume home aspirin, statin #Hyperlipidemia -Resume home statin #Acute kidney injury due to vasomotor nephropathy -Cr :1.5 this admission, baseline 1.0 in . -likely due to dehydration -IVF -will consult nephrology if renal fx worsens Disposition: LEFT AGAINST MEDICAL ADVICE Final Discharge Diagnosis (Prints w/discharge instructions): dka Time spent for discharge: 35 Core Measure Documentation - Palliative Care Palliative Care/ Comfort Measures: Not Applicable - Core Measures Any of the following diagnoses?: none Exam - Physical Exam Narrative exam: Physical Exam: VITAL SIGNS: Reviewed. GENERAL: The patient appears normally developed, Vital signs as documented. HEAD: No signs of head trauma. EYES: Pupils are equal. Extraocular motions intact. EARS: Hearing grossly intact. MOUTH: Oropharynx is normal. NECK: No adenopathy, no JVD. CHEST: Chest with clear breath sounds bilaterally. No wheezes, rales, or rhonchi. CARDIAC: Regular rate and rhythm. S1 and S2, without murmurs, gallops, or rubs. VASCULAR: No Edema. Peripheral pulses normal and equal in all extremities. ABDOMEN: Soft, non tender and non distended. No rebound or guarding, and no masses palpated. Bowel Sounds normal. MUSCULOSKELETAL: Good range of motion of all major joints. Extremities without clubbing, cyanosis or edema. NEUROLOGIC EXAM: Alert and oriented x 4. no focal sensory or strength deficits. PSYCHIATRIC: Mood normal. SKIN: detail exam as documented in skin assessment - Constitutional Vitals: Temp Pulse Resp BP Pulse Ox 98.0 F 66 18 115/74 95 12/03/21 13:25 12/03/21 13:25 12/03/21 13:25 12/03/21 13:25 12/03/21 13:25 Plan Follow up with: HANSEL ARMAS MD [Primary Care Provider] - 3-5 Days
--- NOTE | 2021-12-06 09:16 | Electrocardiograph Report ---
[facility] Test Date: 2021-12-03 Test Time: 03:40:26 Pat Name: BILL PRATHER Department: Room: [place] [address] Gender: F Clinical Research Analyst: SCOTT : 1950 Requested By: DARLYN BARRON Order Number: [id number] Reading MD: Mundo Tiwari Measurements Intervals [place] Rate: 85 P: 69 SD: 230 QRS: -21 QRSD: 88 T: 152 QT: 369 QTc: 440 Interpretive Statements Sinus rhythm Prolonged SD interval Nonspecific T abnrm, anterolateral leads Compared to ECG 11/16/2021 12:48:05 First degree AV block now present Atrial premature complex(es) no longer present Left-axis deviation no longer present T-wave abnormality no longer present Electronically Signed On 12-06-2021 9:16:28 EST by Mundo Tiwari
== END 2021-12-03 13:25 | disposition left against medical advice (07) | DRG 637 ==
LOC: ED 18:05 → CC1 12-03 05:09
PROVIDERS: ADMIT Hospitalist; ATTEND Internal Medicine
DX: E11.10 Type 2 diabetes mellitus with ketoacidosis without coma (principal); N17.0 Acute kidney failure with tubular necrosis; G93.41 Metabolic encephalopathy; I10 Essential (primary) hypertension; Z53.29 Procedure and treatment not carried out because of patient's decision for other reasons; F17.200 Nicotine dependence, unspecified, uncomplicated; W18.39XA Other fall on same level, initial encounter; Y93.89 Activity, other specified; Y92.89 Other specified places as the place of occurrence of the external cause; Y99.8 Other external cause status; I25.10 Atherosclerotic heart disease of native coronary artery without angina pectoris; E86.0 Dehydration; Z79.4 Long term (current) use of insulin; Z88.8 Allergy status to other drugs, medicaments and biological substances; Z88.3 Allergy status to other anti-infective agents; Z91.041 Radiographic dye allergy status; Z86.73 Personal history of transient ischemic attack (TIA), and cerebral infarction without residual deficits; Z79.82 Long term (current) use of aspirin
CPT/HCPCS: 36415; 70450; 71046; 72125; 80048; 80076; 82010; 82140; 82805; 82962; 83690; 83735; 83880; 84100; 84484; 85025; 85610; 85730; 87040; 93005; G0378; Q0162; Q9967; J1644; J1815; J2270; J2405; J7030